=== PATIENT | male | born 1960 | race Caucasian/White ===

== ENCOUNTER 2017-04-16 13:43 | Emergency (ER) | payer OTHER ==
[2017-04-16 14:02] VITALS: RESP 18; TEMP 98.6; O2SAT 99
--- NOTE | 2017-04-16 14:51 | ED PDOC ---
HPI: Hypertension/Hypotension History Per: Patient (56 y M with PMHx of HTN, HLD presents to ED for an episode of hypertension associated with headache. He states that he has not been taking his blood pressure medication for the past 9 months because he didnt feel he needed it anymore. This morning, he experienced a mild headache which he described as bilateral, non radiating and pressure-like. When he checked his blood pressure he found it to be systolic 197. At the moment, he is completely free of any headache. He denies CP, SOB, fever, chills, n/v, hematuria, recent head trauma,weakness in extremities, numbness or tingling. ) History/Exam Limitations: other (Patient is a poor historian- poor recall of medication and stroke Hx) Current Symptoms Are (Timing): Gone Now <Fredi Gilbert - Last Filed: 04/16/17 16:49> <Zeferino Dove - Last Filed: 04/16/17 17:36> Time Seen by Provider: 04/16/17 14:03 Chief Complaint (Nursing): High Blood Pressure Supervising Attending Note - Supervising Attending Note The Documented history was done by the: Physician Mattress Filling Machine Tender The documented physical exam was done by the: Physician Mattress Filling Machine Tender The documented procedures were done by the: Physician Mattress Filling Machine Tender - Attestation: I have personally seen and examined this patient.: Yes I have fully participated in the care of the patient.: Yes I have reviewed all pertinent clinical information, including history, physical exam and plan: Yes - Notes: Notes:: Pt. with mild headache and high bp. Noncompliant with meds. Not worst headache in life. Gones on its own, with no meds. Is pain free currently. <Zeferino Dove - Last Filed: 04/16/17 17:36> Past Medical History Reviewed: Historical Data, Nursing Documentation, Vital Signs Vital Signs: Last Vital Signs Temp 98.6 F 04/16/17 13:58 Pulse 68 04/16/17 13:58 Resp 18 04/16/17 13:58 BP 196/99 H 04/16/17 13:58 Pulse Ox 99 04/16/17 13:58 - Medical History PMH: CVA (2005), HTN, Hypercholesterolemia - Surgical History Surgical History: No Surg Hx - Family History Family History: States: Unknown Family Hx Other Family History: Sister- HTN - Social History Current smoker - smoking cessation education provided: Yes (8 cigarettes daily) Alcohol: Other (6 pack of beer 3-4x a week) <Fredi Gilbert - Last Filed: 04/16/17 16:49> Vital Signs: Last Vital Signs Temp 98.6 F 04/16/17 13:58 Pulse 75 04/16/17 14:51 Resp 18 04/16/17 13:58 BP 199/105 H 04/16/17 16:30 Pulse Ox 99 04/16/17 16:49 <Zeferino Dove - Last Filed: 04/16/17 17:36> - Home Medications Home Medications: Ambulatory Orders Medication Instructions Recorded Furosemide [Lasix] 1 tab PO DAILY 10/12/15 Hydralazine HCl [Hydralazine HCl] 1 tab PO Q8 10/12/15 Lisinopril [Zestril] 1 tab PO DAILY 10/12/15 amLODIPine [Norvasc] 1 tab PO DAILY 10/12/15 Acetaminophen [Acetaminophen Extra 2 tab PO Q4 PRN #24 tablet 12/23/15 Strength] Ibuprofen [Motrin] 1 tab PO Q8 PRN #21 tab 12/23/15 Oseltamivir Phosphate [Tamiflu] 1 tab PO BID #10 cap 12/23/15 - Allergies Allergies/Adverse Reactions: Allergies Allergy/AdvReac Type Severity Reaction Status Date / Time No Known Allergies Allergy Verified 12/23/15 17:02 Review of Systems ROS Statement: Except As Marked, All Systems Reviewed And Found Negative Constitutional: Negative for: Fever, Chills, Weakness Eyes: Negative for: Vision Change Cardiovascular: Negative for: Chest Pain, Palpitations, Edema, Light Headedness Respiratory: Negative for: Cough, Shortness of Breath Gastrointestinal: Negative for: Nausea, Vomiting Genitourinary Male: Negative for: Hematuria Neurological: Negative for: Numbness, Incoordination, Change in Speech, Confusion, Dizziness <Fredi Gilbert - Last Filed: 04/16/17 16:49> Neurological: Positive for: Headache <Zeferino Dove - Last Filed: 04/16/17 17:36> Physical Exam - Reviewed Nursing Documentation Reviewed: Yes Vital Signs Reviewed: Yes - Physical Exam Appears: Positive for: Well, Non-toxic, No Acute Distress Head Exam: Positive for: ATRAUMATIC, NORMAL INSPECTION, NORMOCEPHALIC Skin: Positive for: Normal Color, Warm, DRY Eye Exam: Positive for: EOMI, Normal appearance, PERRL ENT: Positive for: Normal ENT Inspection Neck: Positive for: Normal, Painless ROM Cardiovascular/Chest: Positive for: Regular Rate, Rhythm. Negative for: Chest Non Tender, Edema, Murmur Respiratory: Positive for: Normal Breath Sounds. Negative for: Crackles Pulses-Dorsalis Pedis (L): 2+ Pulses-Dorsalis Pedis (R): 2+ Pulses-Radial (L): 2+ Pulses-Radial (R): 2+ Gastrointestinal/Abdominal: Positive for: Normal Exam, Bowel Sounds, Soft Back: Positive for: Normal Inspection Extremity: Positive for: Normal ROM. Negative for: Pedal Edema Neurologic/Psych: Positive for: Alert, Oriented. 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 Negative for: Aphasia <Zeferino Dove - Last Filed: 04/16/17 17:36> - Laboratory Results Result Diagrams: 04/16/17 15:24 04/16/17 15:24 - ECG O2 Sat by Pulse Oximetry: 99 - Progress ED Course And Treament: 1514hrs - Repeat blood pressure 167/92, patient denies headache Re-evaluation Time: 16:26 (Pt seen lying in bed comfortably; denies headache or any discomfort. ) Condition: Re-examined <Fredi Gilbert - Last Filed: 04/16/17 16:49> - Laboratory Results Result Diagrams: 04/16/17 15:24 04/16/17 15:24 - Progress ED Course And Treament: 1734: BP improved. 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 Pt. EKG similar to old with LVH borderline seen. No infarcting pattern. Pt. aaox3. Pain free. Tolerated PO. Ambulated with no issues. <Zeferino Dove - Last Filed: 04/16/17 17:36> Medical Decision Making Medical Decision Makin yo male with PMHX of HTN, HLD and questionable CVA Hx presents to ED with chief complaint of high blood pressure and headache. Results: Non Contrast Head CT- no signs of an acute hemorrhage; chronic basilar lacunar infarcts EKG- Sinus Bradycardia, LVH, No ST elevations (same findings as HAYES from 10/23 except for LVH) Troponin negative x1 CBC- NML CMP NML <Fredi Gilbert - Last Filed: 04/16/17 16:49> Disposition - Patient ED Disposition Is Patient to be Admitted: No Counseled Patient/Family Regarding: Studies Performed, Diagnosis, Need For Followup, Smoking Cessation - Disposition Disposition: Routine/Home Disposition Time: 16:36 <Fredi Gilbert - Last Filed: 04/16/17 16:49> <Zeferino Dove - Last Filed: 04/16/17 17:36> - Clinical Impression Clinical Impression: Hypertension, Hypokalemia - Disposition Referrals: [facility] [Outside] - 04/17/17 Condition: GOOD Additional Instructions: Return if not better in 3 days. Instructions: Hypokalemia (ED), DASH Eating Plan (ED), Hypertension (ED), Hypertension (GEN), Hyperlipidemia (GEN) Forms: [employer] (British)
[2017-04-16 15:31] LABS: BASO # 0.1 K/uL (0.0-0.2); BASO % 1.3 % (0.0-2.0); EOS # 0.1 K/uL (0.0-0.7); EOS % 1.8 % (0.0-4.0); HEMATOCRIT 42.5 % (35.0-51.0); LYMPH # 1.9 K/uL (1.0-4.3); MEAN CELL VOLUME 85.6 fl (80.0-94.0); MEAN CORPUSCULAR HEMOGLOBIN 27.9 pg (27.0-31.0); MEAN CORPUSCULAR HGB CONC 32.6 g/dL (33.0-37.0); MEAN PLATELET VOLUME 8.8 fl (7.2-11.7); MONO # 0.6 K/uL (0.0-0.8); MONO % 8.1 % (0.0-10.0); NEUT # 4.4 K/uL (1.8-7.0); NEUT % 61.8 % (50.0-75.0); RED CELL DISTRIBUTION WIDTH 13.9 % (11.5-14.5); WHITE BLOOD COUNT 7.1 K/uL (4.8-10.8)
[2017-04-16 15:46] LABS: ALB/GLOB RATIO 1.4 (1.0-2.1); ALKALINE PHOSPHATASE 59 U/L (38-126); ALT/SGPT 32 U/L (21-72); AST/SGOT 23 U/L (17-59); BILIRUBIN,TOTAL 0.5 mg/dl (0.2-1.3); BLOOD UREA NITROGEN 19 mg/dl (9-20); CALCIUM 9.5 mg/dL (8.4-10.2); CARBON DIOXIDE 23 mmol/L (22-30); CHLORIDE 108 mmol/L (98-107); GFR AFRICAN-AMERICAN > 60; GLUCOSE,RANDOM 114 mg/dL (75-110); POTASSIUM 3.4 MMOL/L (3.6-5.0); SODIUM 140 mmol/l (132-148); TOTAL PROTEIN 6.7 G/DL (6.3-8.2)
--- NOTE | 2017-04-16 15:54 | CT ---
PROCEDURE: CT HEAD WITHOUT CONTRAST. HISTORY: headache COMPARISON: Outside head CT dated 05/09/2011 from [facility]. TECHNIQUE: Axial computed tomography images were obtained through the head/brain without intravenous contrast. Radiation dose: Total exam DLP = 846 mGy-cm. This CT exam was performed using one or more of the following dose reduction techniques: Automated exposure control, adjustment of the mA and/or kV according to patient size, and/or use of iterative reconstruction technique. FINDINGS: HEMORRHAGE: No intracranial hemorrhage. BRAIN: Bilateral basal ganglia chronic lacunar infarcts are again appreciated greater at the left than right sides. Periventricular white matter lucency is appreciate which may reflect early chronic microangiopathy once again. No suspicious interval density changes are identified within the cortex above and below the tentorium with the brainstem normal appearing once again. No suspicious extra-axial findings. VENTRICLES: Unremarkable. No hydrocephalus. CALVARIUM: Unremarkable. PARANASAL SINUSES: Limited ethmoid sinus disease is appreciate the lung mid to posterior left ethmoid air cells. MASTOID AIR CELLS: Unremarkable as visualized. No inflammatory changes. OTHER FINDINGS: None. IMPRESSION: 1. No definite acute intracranial findings. 2. Chronic lacune or infarcts are seen the bilateral basal ganglia once again without significant change overall above and below the tentorium. This includes limited periventricular white matter lucency which may reflect early chronic microangiopathy.
[2017-04-16] MEDS ORDERED: Potassium Chloride 20 mEq ER Tab PO ONE ×2 (16:18→16:28)
[2017-04-16 17:41] VITALS: BP 168/98; PULSE 78
--- NOTE | 2017-04-17 11:23 | CARD ---
APPROVED REPORT EKG Measurement Heart [id number] AK [id number] <Conclusion> Sinus bradycardia Possible Left atrial enlargement Left ventricular hypertrophy Cannot rule out Septal infarct, age undetermined Abnormal ECG
== END 2017-04-16 17:42 | disposition home or self-care (01) ==
LOC: H.ER 13:43
DX: I10 Essential (primary) hypertension (principal); E87.6 Hypokalemia; E78.5 Hyperlipidemia, unspecified; Z86.73 Personal history of transient ischemic attack (TIA), and cerebral infarction without residual deficits

== ENCOUNTER 2018-01-15 09:45 | Inpatient (IN) | payer OTHER ==
[2018-01-15 10:06] VITALS: BMI 33.5
[2018-01-15] MEDS ORDERED: Labetalol 5 mg/ml Inj 20ML IVP STA (10:59)
--- NOTE | 2018-01-15 11:05 | ED PDOC ---
HPI: Hypertension/Hypotension Time Seen by Provider: 01/15/18 11:02 Chief Complaint (Nursing): High Blood Pressure Chief Complaint (Provider): elevated BP; left leg weakness resolved History Per: Patient (57 y/o male h/o HTN noncompliant on medications, h/o CVA 2004 mild here for evaluation of left leg limp noted this morning and resolved by arrival to ED. Patient denies any h/o injury or pain. Notes additional left eye redness that occurred after coughing post choking earlier this week. Denies any chest pain/sob.) NIHSS Stroke Scale - Date/Time Evaluation Performed Date Performed: 01/15/18 Time Performed: 10:55 When Was NIHSS Performed: Baseline - How Severe is the Stroke Level of Consciousness: 0=Alert LOC to Questions: 0=Both comments correct LOC to commands: 0=Obeys both correctly Best Gaze: 0=Normal Visual: 0=No visual loss Facial: 0=Normal Motor Arm - Left: 0=No drift Motor Arm - Right: 0=No drift Motor Leg - Left: 0=No drift Motor Leg - Right: 0=No drift Limb Ataxia: 0=Absent Sensory: 0=Normal Best Language: 0=No aphasia Dysarthia: 0=Normal articulation Extinction & Inattention (Neglect): 0=Normal, no object Score: 0 rTPA Inclusion/Exclusion - Refusal of Treatment Patient Refused Treatment: No - Inclusion Criteria for Altepase Patient is 18 years or Older: Yes The Clinical Diagnosis of Ischemic Stroke That is Causing a Potentially Disabling Neurological Deficit: No Time of Onset is Well Established to be Less Than 270 Minute Before Treatment Would Begin: No Risk/Benefit Discussed With Patient/Family Member Present: No - Exclusion Criteria for Altepase Uncontrolled Hypertension at Time of Treatment (Systolic BP above 185 or Diastolic BP above 110 mmHg): Yes Past Medical History Reviewed: Historical Data, Nursing Documentation, Vital Signs Vital Signs: Last Vital Signs Temp 97.7 F 01/15/18 10:06 Pulse 61 01/15/18 10:37 Resp 19 01/15/18 10:37 BP 218/137 H 01/15/18 10:37 Pulse Ox 98 01/15/18 10:37 - Medical History PMH: CVA (2004), HTN, Hypercholesterolemia - Family History Family History: States: Unknown Family Hx - Home Medications Home Medications: Ambulatory Orders Medication Instructions Recorded Cyclobenzaprine [Cyclobenzaprine 10 mg PO TID #10 tab 06/05/17 HCl] amLODIPine [Norvasc] 10 mg PO DAILY #14 tab 06/05/17 - Allergies Allergies/Adverse Reactions: Allergies Allergy/AdvReac Type Severity Reaction Status Date / Time No Known Allergies Allergy Verified 12/23/15 17:02 Review of Systems ROS Statement: Except As Marked, All Systems Reviewed And Found Negative Physical Exam - Reviewed Nursing Documentation Reviewed: Yes Vital Signs Reviewed: Yes - Physical Exam Appears: Positive for: Well, Non-toxic, No Acute Distress Head Exam: Positive for: ATRAUMATIC, NORMAL INSPECTION, NORMOCEPHALIC Skin: Positive for: Normal Color, Warm, DRY Eye Exam: Positive for: Normal appearance, EOMI, PERRL, Other (left subconjunctival hemorrhage noted) ENT: Positive for: Normal ENT Inspection Neck: Positive for: Normal, Painless ROM Cardiovascular/Chest: Positive for: Regular Rate, Rhythm Respiratory: Positive for: CNT, Normal Breath Sounds Gastrointestinal/Abdominal: Positive for: Normal Exam, Soft Back: Positive for: Normal Inspection Extremity: Positive for: Normal ROM Neurologic/Psych: Positive for: Alert, 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 Negative for: Motor/Sensory Deficits (5/5 upper and lower extremity strength noted.), Cerebellar Tests, Aphasia, Facial Droop - Laboratory Results Result Diagrams: 01/15/18 12:23 01/15/18 12:23 - ECG ECG Rhythm: Positive for: Sinus Bradycardia (50 bpm no ectopy no acute changes.) O2 Sat by Pulse Oximetry: 98 - Progress ED Course And Treament: d/w Dr. Whittaker 11:13am MRI of brain recommended. head ct: IMPRESSION: No acute intracranial hemorrhage. Moderate chronic white matter ischemic changes with multiple more discrete bilateral basal nuclei chronic appearing lacunar type infarcts. Note that the possibility of a small hyperacute infarct cannot be excluded on this study. Moderate generalized volume loss. labetolol 20 mg iv x 1 dose Repeat BP 198/122 hydralazine 10 mg iv x 1 dose REPEAT BP 194/114 D/W DR. CORONEL D/W FAMILY MED RESIDENT MRI OF BRAIN: IMPRESSION: There is a small acute/subacute right post rule out basal ganglia infarct. Chronic white matter and basal nuclei ischemic changes as above. Moderate generalized volume loss. Findings discussed with bebo Seay at 2:30 p.m. with written down and read back verification. D/W DR. WHITTAKER WILL OBTAIN ECHO/CTA AND ORDER ASA. d/w Dr. Okeefe opthalmology as requested by Dr. Whittaker hydralazine 10 mg 2nd dose repeat BP 175/100. Dr. Coronel aware. hydralazine 25 mg po q8 ordered Disposition - Clinical Impression Clinical Impression: Hypertensive urgency, TIA (transient ischemic attack) - Patient ED Disposition Is Patient to be Admitted: Yes - Disposition Disposition Time: 13:08 Condition: FAIR - Pt Status Changed To: Hospital Disposition Of: Inpatient - Admit Certification Admit to Inpatient:: After my assessment, the patient will require hospitalization for at least two midnights. This is because of the severity of symptoms shown, intensity of services needed, and/or the medical risk in this patient being treated as an outpatient.
--- NOTE | 2018-01-15 11:37 | CT ---
PROCEDURE: CT HEAD WITHOUT CONTRAST. HISTORY: Weakness in left leg resolved COMPARISON: None available. TECHNIQUE: Axial computed tomography images were obtained through the head/brain without intravenous contrast. Radiation dose: Total exam DLP = 889.73 mGy-cm. This CT exam was performed using one or more of the following dose reduction techniques: Automated exposure control, adjustment of the mA and/or kV according to patient size, and/or use of iterative reconstruction technique. FINDINGS: HEMORRHAGE: No intracranial hemorrhage. BRAIN: Moderate diffuse/confluent chronic periventricular white matter ischemic changes seen extending peripherally into the deep and subcortical white matter both cerebral hemispheres. . In addition, there are scattered chronic appearing bilateral basal nuclei lacunar type infarcts. Note that the possibility of a small hyperacute infarct cannot be excluded on this study. Moderate generalized volume loss. VENTRICLES: Unremarkable. No hydrocephalus. CALVARIUM: Unremarkable. PARANASAL SINUSES: Mild mucoperiosteal inflammatory changes are present within within the ethmoid air complex. MASTOID AIR CELLS: Unremarkable as visualized. No inflammatory changes. OTHER FINDINGS: None. IMPRESSION: No acute intracranial hemorrhage. Moderate chronic white matter ischemic changes with multiple more discrete bilateral basal nuclei chronic appearing lacunar type infarcts. Note that the possibility of a small hyperacute infarct cannot be excluded on this study. Moderate generalized volume loss.
[2018-01-15 12:39] LABS: BASO # 0.1 K/uL (0.0-0.2); BASO % 0.8 % (0.0-2.0); EOS # 0.1 K/uL (0.0-0.7); EOS % 1.9 % (0.0-4.0); HEMOGLOBIN 14.2 g/dL (12.0-18.0); LYMPH # 1.8 K/uL (1.0-4.3); LYMPH % 25.3 % (20.0-40.0); MEAN CELL VOLUME 85.8 fl (80.0-94.0); MEAN CORPUSCULAR HEMOGLOBIN 28.1 pg (27.0-31.0); MEAN CORPUSCULAR HGB CONC 32.7 g/dL (33.0-37.0); MEAN PLATELET VOLUME 8.9 fl (7.2-11.7); MONO # 0.5 K/uL (0.0-0.8); NEUT # 4.7 K/uL (1.8-7.0); RBC 5.07 Mil/uL (4.40-5.90); RED CELL DISTRIBUTION WIDTH 15.1 % (11.5-14.5); WHITE BLOOD COUNT 7.2 K/uL (4.8-10.8)
[2018-01-15 12:44] LABS: BLOOD UREA NITROGEN 20 mg/dl (9-20); GFR AFRICAN-AMERICAN > 60; GFR NON-AFRICAN AMERICAN > 60
[2018-01-15 12:56] LABS: PARTIAL THROMBOPLASTIN TIME 40.9 Seconds (25.6-37.1); PROTHROMBIN TIME 10.6 Seconds (9.8-13.1)
--- NOTE | 2018-01-15 14:39 | MRI ---
PROCEDURE: MRI BRAIN WITHOUT CONTRAST HISTORY: Left leg weakness resolved; evaluate for stroke COMPARISON: None. TECHNIQUE: Multiplanar, multisequence MR images of the brain were obtained without intravenous contrast enhancement. FINDINGS: HEMORRHAGE: No acute parenchymal, subarachnoid or extra-axial hemorrhage. DWI: There is a very small faint area of restricted diffusion in the right posterolateral basal ganglia consistent with a small acute large subacute infarct. BRAIN PARENCHYMA: Changes the moderate diffuse and confluent chronic periventricular white matter prolonged T2 signal changes extending peripherally into deep and subcortical regions of both cerebral hemispheres seen to better advantage on this exam as compared to high-resolution CT scan. . Findings most likely represent chronic sequela of small vessel disease. There are multiple more discrete deep and subcortical white matter as well as bilateral basal nuclei chronic lacunar-type infarcts. . No obvious parenchymal nor extra-axial mass or collection seen on this noncontrast study. Mild moderate generalized volume loss. VENTRICLES: No obstructive hydrocephalus. CRANIUM: Unremarkable. ORBITS: Orbits and contents unremarkable. PARANASAL SINUSES/MASTOIDS: Mild mucosal thickening seen within a multiple ethmoid air cells. Minimal mucosal thickening both maxillary antra VASCULAR SYSTEM: The visualized major vascular flow voids at skull base patent. OTHER FINDINGS: None. IMPRESSION: There is a small acute/subacute right post rule out basal ganglia infarct. Chronic white matter and basal nuclei ischemic changes as above. Moderate generalized volume loss. Findings discussed with bebo Seay at 2:30 p.m. with written down and read back verification.
[2018-01-15] MEDS ORDERED: Iodixanol 320 MG/ML 100 ML BOTTLE IV ONE (15:14)
[2018-01-15] MEDS ORDERED: Sodium Chloride 0.9% 50 ML IV ONE (15:15)
--- NOTE | 2018-01-15 16:02 | CARD ---
APPROVED REPORT EKG Measurement Heart [id number] HI [id number] [id number] <Conclusion> Sinus bradycardia Possible Left atrial enlargement Left ventricular hypertrophy Abnormal ECG
--- NOTE | 2018-01-15 17:01 | CARD ---
APPROVED REPORT EXAM: Two-dimensional and M-mode echocardiogram with Doppler and color Doppler. Other Information Quality : GoodRhythm : NSR INDICATION CVA/TIA 2D DIMENSIONS IVSd1.70 (0.7-1.1cm)LVDd4.52 (3.9-5.9cm) LVOT Diameter2.58 (1.8-2.4cm)PWd1.74 (0.7-1.1cm) IVSs1.82 (0.8-1.2cm)LVDs3.10 (2.5-4.0cm) FS (%) 31.5 %PWs1.81 (0.8-1.2cm) LVEF (%)55.0 (>50%) M-Mode DIMENSIONS Left Atrium (MM)4.50 (2.5-4.0cm)IVSd1.47 (0.7-1.1cm) Aortic Root2.94 (2.2-3.7cm)LVDd5.38 (4.0-5.6cm) Aortic Cusp Exc.2.09 (1.5-2.0cm)PWd1.62 (0.7-1.1cm) IVSs2.32 cmFS (%) 54 % LVDs2.50 (2.0-3.8cm)PWs2.53 cm Mitral Valve MV E Dlfhrgpi19.3cm/sMV DECEL [id number] A Lnhghtcy07.8cm/s MV DDF73lkL/A ratio1.0MVA (PHT)2.67cm2 TDI Lateral E' Peak V11.57cm/sMedial E' Peak V6.44cm/sE/Lateral E'6.2 E/Medial E'11.2 Pulmonary Valve PV Peak Ynnrulbm257.8cm/s LEFT VENTRICLE The left ventricle is normal size. There is mild to moderate concentric left ventricular hypertrophy. The left ventricular function is normal. The left ventricular ejection fraction is within the normal range. There is normal LV segmental wall motion. Transmitral Doppler flow pattern is Grade I-abnormal relaxation pattern. RIGHT VENTRICLE The right ventricle is normal size. There is normal right ventricular wall thickness. The right ventricular systolic function is normal. ATRIA The left atrium is mildly dilated. The right atrium size is normal. AORTIC VALVE The aortic valve is mildly thickened. No aortic regurgitation is present. There is no aortic valvular stenosis. MITRAL VALVE The mitral valve is normal in structure. There is no mitral valve stenosis. Mitral regurgitation is mild. TRICUSPID VALVE The tricuspid valve is normal in structure. There is trace tricuspid regurgitation. PULMONIC VALVE The pulmonary valve is normal in structure. There is no pulmonic valvular regurgitation. GREAT VESSELS The aortic root is normal in size. The IVC is normal in size and collapses >50% with inspiration. PERICARDIAL EFFUSION The pericardium appears normal. <Conclusion> The left ventricle is normal size. There is mild to moderate concentric left ventricular hypertrophy. The left ventricular function is normal. The left ventricular ejection fraction is within the normal range. There is normal LV segmental wall motion. Transmitral Doppler flow pattern is Grade I-abnormal relaxation pattern. Mitral regurgitation is mild. A samll PFO is likely present
--- NOTE | 2018-01-15 17:33 | CT ---
PROCEDURE: CTA neck brain dated 01/15/2018 HISTORY: Stroke COMPARISON: Correlation made with prior MRI and CT scan brain obtained earlier same day TECHNIQUE: Contiguous helical/transaxial images of the neck were obtained from the level of the skull-base to the superior mediastinum in the arteriographic phase of enhancement. Coronal and sagittal reformats or also generated. IV contrast dose: 90 cc Visipaque 320 Radiation Dose - DLP: 785.04 mGy-cm This CT exam was performed using one or more of the following dose reduction techniques: Automated exposure control, adjustment of the mA and/or kV according to patient size, and/or use of iterative reconstruction technique. . FINDINGS: Minor up partially calcified atherosclerotic plaque seen along the lateral and inferolateral margin of the transverse portion of the aortic arch. . The right brachiocephalic and left common carotid artery arise from a common trunk. The common carotid arteries are widely patent with no evidence of significant stenosis or dissection. Some very minor soft and partially carotid bifurcation extending slightly into the proximal margin of the left internal carotid artery with tiny calcification along the posterior margin of the proximal left internal carotid artery. Minor soft plaque seen the right carotid bifurcation and proximal margin of the right internal carotid artery. No significant stenosis. The distal internal carotid arteries including the petrous cavernous and supraclinoid segments widely patent. The vertebral arteries patent throughout, right-side which is only slightly larger in caliber/more dominant the than the left side. . Basilar artery is patent. The visualized major branches of the [place] are also patent. No evidence of large aneurysm nor vascular malformation. The distal branches of the anterior middle and posterior cerebral arteries are patent and appear relatively symmetric. IMPRESSION: No evidence of occlusion, significant stenosis or dissection of the extracranial or intracranial anterior/posterior circulation. Note is made of minor soft plaque changes both carotid bifurcations with a tiny rounded calcified plaque component left proximal internal carotid artery. . No evidence of large aneurysm.
--- NOTE | 2018-01-15 22:13 | CP.PCM.CON ---
History of Present Illness - History of Present Illness History of Present Illness: 57 yr old male who suddenly started to have left leg numbness and weakness that resolved by the time of my exam, starting about 4 hours before presentation. Patient has a history of a lacunar stroke in 2004v and is often noncompliant with his medications. He denies dysarthria, headache, nausea, vomiting, aphasia, visual field issues or any loss of consciousness. MRI brain shows that he has an acute right basal ganglia stroke that is acute in nature. He is not a TPA candidate as his symptoms are resolved. NIH stroke scale: 0. PMH: CVA (2004), HTN, Hypercholesterolemia - Family History Family History: States: Unknown Family Hx - Home Medications Home Medications: Ambulatory Orders Medication Instructions Recorded Cyclobenzaprine [Cyclobenzaprine 10 mg PO TID #10 tab 06/05/17 HCl] amLODIPine [Norvasc] 10 mg PO DAILY #14 tab 06/05/17 on exam; AAOX3. PERRL. Cn 2-12 normal. speech fluent. naming and repetition intact. Motor: tone normal, strength: 5-/5 left lower limb, rest of neuro exam is normal. There is no extinction, no other deficits +2 dtr ul and ll bl. toes downgoing. NO clonus. Gait normal can walk tandem. Past Patient History - Infectious Disease Hx of Infectious Diseases: None - Past Social History Smoking Status: Light Smoker < 10 Cigarettes Daily - CARDIAC Hx Hypercholesterolemia: Yes Hx Hypertension: Yes - NEUROLOGICAL Hx Neurological Disorder: Yes - PSYCHIATRIC Hx Substance Use: No - SURGICAL HISTORY Hx Surgeries: No - ANESTHESIA Hx Anesthesia: No Meds Allergies/Adverse Reactions: Allergies Allergy/AdvReac Type Severity Reaction Status Date / Time No Known Allergies Allergy Verified 12/23/15 17:02 - Medications Medications: Current Medications Amlodipine Besylate (Norvasc) 10 mg PO DAILY [facility] Hydralazine HCl (Apresoline) 25 mg PO TID [facility] Last Admin: 01/15/18 17:23 Dose: 25 mg Results - Vital Signs Recent Vital Signs: Last Vital Signs Temp 98 F 01/15/18 20:40 Pulse 62 01/15/18 20:40 Resp 16 01/15/18 20:40 BP 171/86 H 01/15/18 20:40 Pulse Ox 98 01/15/18 20:40 - Labs Result Diagrams: 01/15/18 12:23 01/15/18 12:23 Labs: Laboratory Results - last 24 hr 01/15/18 01/15/18 01/15/18 12:23 12:23 12:23 WBC 7.2 RBC 5.07 Hgb 14.2 Hct 43.5 MCV 85.8 MCH 28.1 MCHC 32.7 L RDW 15.1 H Plt Count 260 MPV 8.9 Neut % (Auto) 65.0 Lymph % (Auto) 25.3 [place] % (Auto) 7.0 Eos % (Auto) 1.9 Baso % (Auto) 0.8 Neut # (Auto) 4.7 Lymph # (Auto) 1.8 [place] # (Auto) 0.5 Eos # (Auto) 0.1 Baso # (Auto) 0.1 PT 10.6 INR 1.0 APTT 40.9 H Sodium 138 Potassium 3.6 Chloride 104 Carbon Dioxide 25 Anion Gap 13 BUN 20 Creatinine 1.2 Est GFR ( Amer) > 60 Est GFR (Non-Af Amer) > 60 Random Glucose 93 Calcium 9.0 Troponin I 0.0280 Assessment & Plan - Assessment and Plan (Free Text) Assessment: CTA: minimal plaque in carotids bilaterally. a/p: 57 yr old mal with uncontolled hypertension who has a new right basal ganglia stroke that is causing these symptoms. I believe this is a lacunar stroke and secondary to hypertension. PLan: 1. ECHo 2. aspirin 325 mg po daily 3. lipid profile. 4. control bp within nomral parameters. 5. pt/st/ot THank you Dr. garcia
--- NOTE | 2018-01-16 02:01 | CP.PCM.PCO ---
Physician Communication Note - Physician Communication Note Physician Communication Note: nurse paged, patients BP is 193/90 with HR 49 bpm , asymptomatic Assessment/Plan - Assessment and Plan (Free Text) Assessment: 57 yr old M admitted for acute CVA, per neurology: MRI brain showed acute right basal ganglia stroke. Patient was not a candidate for TPA as symptoms resolved. Patient is currently asymptomatic (denies chest pain, headache, weakness, dizziness). Echocardiogram showed normal LV size and function with LVEF of 55%. Multiple hypertensive medications were administered at 23:00 including ( Hydralazine 50mg PO, Amlodipine 5mg PO) as well as aspirin 81mg PO. Plan: -Will continue to monitor patient and reassess BP in 2hrs as multiple medications were administered at 23:00 and patient is currently asymptomatic. Will consider additional antihypertensive medication pending repeat BP. - Date & Time Date: 01/16/18 Time: 02:09
[2018-01-16 07:35] LABS: BASO # 0.1 K/uL (0.0-0.2); BASO % 0.8 % (0.0-2.0); EOS # 0.2 K/uL (0.0-0.7); EOS % 3.1 % (0.0-4.0); HEMOGLOBIN 13.9 g/dL (12.0-18.0); LYMPH % 27.7 % (20.0-40.0); MEAN CORPUSCULAR HEMOGLOBIN 28.3 pg (27.0-31.0); MEAN CORPUSCULAR HGB CONC 32.9 g/dL (33.0-37.0); MEAN PLATELET VOLUME 8.9 fl (7.2-11.7); MONO # 0.7 K/uL (0.0-0.8); MONO % 9.4 % (0.0-10.0); NEUT # 4.2 K/uL (1.8-7.0); RBC 4.91 Mil/uL (4.40-5.90); WHITE BLOOD COUNT 7.1 K/uL (4.8-10.8)
[2018-01-16 08:01] LABS: ALB/GLOB RATIO 1.2 (1.0-2.1); ALBUMIN 3.4 g/dL (3.5-5.0); ALT/SGPT 27 U/L (21-72); AST/SGOT 27 U/L (17-59); BLOOD UREA NITROGEN 17 mg/dl (9-20); CALCIUM 8.8 mg/dL (8.4-10.2); GFR AFRICAN-AMERICAN > 60; GFR NON-AFRICAN AMERICAN > 60
[2018-01-16] MEDS ORDERED: Pneumococcal 23-Valent Vaccine IM ONE (08:09)
[2018-01-16] MEDS ORDERED: Potassium Chloride 20 mEq ER Tab PO STA (08:20)
[2018-01-16 12:25] VITALS: RESP 18
--- NOTE | 2018-01-16 23:12 | CP.PCM.HP ---
History of Present Illness - History of Present Illness History of Present Illness: This is a 57 y/o male admitted for a possible TIA. He presented with left leg limping associated with accelerated HTN. Past Patient History - Infectious Disease Hx of Infectious Diseases: None - Past Medical History & Family History Past Medical History?: Yes - Past Social History Smoking Status: Light Smoker < 10 Cigarettes Daily - CARDIAC Hx Hypercholesterolemia: Yes Hx Hypertension: Yes - PULMONARY Hx Respiratory Disorders: No - NEUROLOGICAL Hx Neurological Disorder: Yes - HEENT Hx HEENT Problems: No - RENAL Hx Chronic Kidney Disease: No - HEMATOLOGICAL/ONCOLOGICAL Hx Blood Disorders: No - INTEGUMENTARY Hx Dermatological Problems: No - MUSCULOSKELETAL/RHEUMATOLOGICAL Hx Musculoskeletal Disorders: No Hx Falls: No - GASTROINTESTINAL Hx Gastrointestinal Disorders: No - GENITOURINARY/GYNECOLOGICAL Hx Genitourinary Disorders: No - PSYCHIATRIC Hx Substance Use: No - SURGICAL HISTORY Hx Surgeries: No - ANESTHESIA Hx Anesthesia: No Meds Allergies/Adverse Reactions: Allergies Allergy/AdvReac Type Severity Reaction Status Date / Time No Known Allergies Allergy Verified 12/23/15 17:02 Results - Vital Signs Recent Vital Signs: Last Vital Signs Temp 97.0 F L 01/16/18 20:35 Pulse 50 L 01/16/18 20:35 Resp 18 01/16/18 20:35 BP 167/97 H 01/16/18 20:35 Pulse Ox 98 01/16/18 20:35 - Labs Result Diagrams: 01/16/18 06:00 01/16/18 06:00 Labs: Laboratory Results - last 24 hr 01/16/18 01/16/18 06:00 06:00 WBC 7.1 RBC 4.91 Hgb 13.9 Hct 42.2 MCV 86.0 MCH 28.3 MCHC 32.9 L RDW 15.0 H Plt Count 242 MPV 8.9 Neut % (Auto) 59.0 Lymph % (Auto) 27.7 [place] % (Auto) 9.4 Eos % (Auto) 3.1 Baso % (Auto) 0.8 Neut # (Auto) 4.2 Lymph # (Auto) 2.0 [place] # (Auto) 0.7 Eos # (Auto) 0.2 Baso # (Auto) 0.1 Sodium 139 Potassium 3.3 L Chloride 105 Carbon Dioxide 29 Anion Gap 8 L BUN 17 Creatinine 1.2 Est GFR ( Amer) > 60 Est GFR (Non-Af Amer) > 60 Random Glucose 97 Calcium 8.8 Total Bilirubin 1.1 AST 27 ALT 27 Alkaline Phosphatase 57 Total Protein 6.4 Albumin 3.4 L Globulin 3.0 Albumin/Globulin Ratio 1.2
[2018-01-17 08:27] VITALS: O2SAT 98
--- NOTE | 2018-01-17 09:13 | CP.PCM.PN ---
Subjective - Date & Time of Evaluation Date of Evaluation: 01/17/18 Time of Evaluation: 09:09 - Subjective Subjective: Mr. Waters was seen and examined at the bedside. He is alert, oriented in all spheres. He has left scleara blood tinge, but denies any blurred vision and diplopia. He denies any headache, dizziness, but claims of mild numbness in his left toes. He is able to ambulate in a steady gait within his room. Echocardiogram showed LV size is nomal, there is a mild to moderate concentric LV hypertrophy (uncontrolled HTN), LV function is normal, EF is normal. LV segmental wall motion is normal, Grade-1 abnormal relaxation pattern, mitral regurgitation is mild, possible small PFO. There was no untoward events overnight. Objective - Vital Signs/Intake and Output Vital Signs (last 24 hours): Temp Pulse Resp BP Pulse Ox 98.1 F 49 L 18 207/106 H 98 01/17/18 08:26 01/17/18 08:26 01/17/18 08:26 01/17/18 08:26 01/17/18 08:26 - Medications Medications: Current Medications Amlodipine Besylate (Norvasc) 10 mg PO DAILY [facility] Clonidine HCl (Catapres) 0.3 mg PO Q8 [facility] Hydralazine HCl (Apresoline) 100 mg PO TID [facility] Valsartan (Diovan) 320 mg PO DAILY [facility] Last Admin: 01/17/18 08:19 Dose: 320 mg - Labs Labs: 01/16/18 06:00 01/16/18 06:00 PT 10.6 Seconds (9.8-13.1) 01/15/18 12:23 INR 1.0 (0.9-1.2) 01/15/18 12:23 APTT 40.9 Seconds (25.6-37.1) H 01/15/18 12:23 - Constitutional Appears: No Acute Distress - Head Exam Head Exam: NORMAL INSPECTION - Eye Exam Eye Exam: PERRL Additional comments: blood tinge sclerae - Neurological Exam Neurological Exam: Alert, Awake, CN II-XII Intact, Oriented x3 Neuro motor strength exam: Left Upper Extremity: 5, Right Upper Extremity: 5, Left Lower Extremity: 5, Right Lower Extremity: 5 Additional comments: alert, oriented x3, follows simple commands with left feet toes numbness Assessment and Plan (1) TIA (transient ischemic attack) Assessment & Plan: Case discussed with Dr. White, continue all current medical, physical, and occupational therapies. Recommend to hold off anticoagulant due to his left eye blood tinge, repeat CT scan of the head without contrast today, blood pressure control, normothermic, keep head of bed elevated, and treat any electrolyte abnormalities. Status: Acute
--- NOTE | 2018-01-17 11:14 | CP.PCM.DIS ---
Provider - Provider Date of Admission: 01/16/18 13:08 Attending physician: Mayank Holly MD Hospital Course - Lab Results Lab Results: Most Recent Lab Values WBC 7.1 K/uL (4.8-10.8) 01/16/18 06:00 RBC 4.91 Mil/uL (4.40-5.90) 01/16/18 06:00 Hgb 13.9 g/dL (12.0-18.0) 01/16/18 06:00 Hct 42.2 % (35.0-51.0) 01/16/18 06:00 MCV 86.0 fl (80.0-94.0) 01/16/18 06:00 MCH 28.3 pg (27.0-31.0) 01/16/18 06:00 MCHC 32.9 g/dL (33.0-37.0) L 01/16/18 06:00 RDW 15.0 % (11.5-14.5) H 01/16/18 06:00 Plt Count 242 K/uL (130-400) 01/16/18 06:00 MPV 8.9 fl (7.2-11.7) 01/16/18 06:00 Neut % (Auto) 59.0 % (50.0-75.0) 01/16/18 06:00 Lymph % (Auto) 27.7 % (20.0-40.0) 01/16/18 06:00 [place] % (Auto) 9.4 % (0.0-10.0) 01/16/18 06:00 Eos % (Auto) 3.1 % (0.0-4.0) 01/16/18 06:00 Baso % (Auto) 0.8 % (0.0-2.0) 01/16/18 06:00 Neut # (Auto) 4.2 K/uL (1.8-7.0) 01/16/18 06:00 Lymph # (Auto) 2.0 K/uL (1.0-4.3) 01/16/18 06:00 [place] # (Auto) 0.7 K/uL (0.0-0.8) 01/16/18 06:00 Eos # (Auto) 0.2 K/uL (0.0-0.7) 01/16/18 06:00 Baso # (Auto) 0.1 K/uL (0.0-0.2) 01/16/18 06:00 PT 10.6 Seconds (9.8-13.1) 01/15/18 12:23 INR 1.0 (0.9-1.2) 01/15/18 12:23 APTT 40.9 Seconds (25.6-37.1) H 01/15/18 12:23 Sodium 139 mmol/l (132-148) 01/16/18 06:00 Potassium 3.3 MMOL/L (3.6-5.0) L 01/16/18 06:00 Chloride 105 mmol/L (98-107) 01/16/18 06:00 Carbon Dioxide 29 mmol/L (22-30) 01/16/18 06:00 Anion Gap 8 (10-20) L 01/16/18 06:00 BUN 17 mg/dl (9-20) 01/16/18 06:00 Creatinine 1.2 mg/dl (0.8-1.5) 01/16/18 06:00 Est GFR ( Amer) > 60 01/16/18 06:00 Est GFR (Non-Af Amer) > 60 01/16/18 06:00 Random Glucose 97 mg/dL (75-110) 01/16/18 06:00 Calcium 8.8 mg/dL (8.4-10.2) 01/16/18 06:00 Total Bilirubin 1.1 mg/dl (0.2-1.3) 01/16/18 06:00 AST 27 U/L (17-59) 01/16/18 06:00 ALT 27 U/L (21-72) 01/16/18 06:00 Alkaline Phosphatase 57 U/L (38-126) 01/16/18 06:00 Troponin I 0.0280 ng/mL (0.00-0.120) 01/15/18 12:23 Total Protein 6.4 G/DL (6.3-8.2) 01/16/18 06:00 Albumin 3.4 g/dL (3.5-5.0) L 01/16/18 06:00 Globulin 3.0 gm/dL (2.2-3.9) 01/16/18 06:00 Albumin/Globulin Ratio 1.2 (1.0-2.1) 01/16/18 06:00 - Hospital Course Hospital Course: This is a 57 y/o male admitted for tia and accelerated HTN Discharge Exam - Head Exam Head Exam: NORMAL INSPECTION Discharge Plan - Follow Up Plan Condition: FAIR Disposition: HOME/ ROUTINE
--- NOTE | 2018-01-17 11:51 | CP.PCM.CON ---
History of Present Illness - History of Present Illness History of Present Illness: I was asked to see pateint by Dr del rio. Patient is a 57 year old male with previous CVA who presents with facial numbness and weakness. Blood pressure was markedly elevated. The patient denies chest pain or dyspnea. He had previous palpitiatons. Review of Systems - EENT Eyes: absent: As Per HPI, Blind Spots, Blurred Vision, Change in Vision, Decreased Night Vision, Diplopia, Discharge, Dry Eye, Exophthalmos, Floaters, Irritation, Itchy Eyes, Loss of Peripheral Vision, Pain, Photophobia, Requires Corrective Lenses, Sees Flashes, Spots in Vision, Tunnel Vision, Other Visual Disturbances, Loss of Vision, Other Ears: absent: As Per HPI, Decreased Hearing, Ear Discharge, Ear Pain, Tinnitus, Abnormal Hearing, Disequilibrium, Dizziness, Other Nose/Mouth/Throat: absent: As Per HPI, Epistaxis, Nasal Congestion, Nasal Discharge, Nasal Obstruction, Nasal Trauma, Nose Pain, Post Nasal Drip, Sinus Pain, Sinus Pressure, Bleeding Gums, Change in Voice, Dental Pain, Dry Mouth, Dysphagia, Halitosis, Hoarsness, Lip Swelling, Mouth Lesions, Mouth Pain, Odynophagia, Sore Throat, Throat Swelling, Tongue Swelling, Facial Pain, Neck Pain, Neck Mass, Other - Cardiovascular Cardiovascular: Palpitations - Respiratory Respiratory: absent: As Per HPI, Cough, Dyspnea, Hemoptysis, Dyspnea on Exertion , Wheezing, Snoring, Stridor, Pain on Inspiration, Chest Congestion, Excessive Mucous Production, Change in Mucous Color, Pain with Coughing, Other - Gastrointestinal Gastrointestinal: absent: As Per HPI, Abdominal Pain, Belching, Bloating, Change in Bowel Habits, Change in Stool Character, Coffee Ground Emesis, Constipation, Cramping, Diarrhea, Dyspepsia, Dysphagia, Early Satiety, Excessive Flatus, Fecal Incontinence, Heartburn, Hematemesis, Hematochezia, Loose Stools, Melena, Nausea, Odynophagia, Temesmus, Vomiting, Other - Genitourinary Genitourinary: absent: As Per HPI, Change in Urinary Stream, Difficulty Urinating, Dysuria, Flank Pain, Hematuria, Pyuria, Nocturia, Urinary Incontinence, Urinary Frequency, Urinary Hesitance, Urinary Urgency, Voiding Freq/Small Amts, Freq UTI, Hx Renal/Bladder Calculi, Hx /Renal Surgery, Bladder Distension, Other - Musculoskeletal Musculoskeletal: absent: As Per HPI, Abnormal Gait, Arthralgias, Atrophy, Back Pain, Deformity, Joint Swelling, Limited Range of Motion, Loss of Height, Muscle Cramps, Muscle Weakness, Myalgias, Neck Pain, Numbness, Radiating Pain into Limb, Stiffness, Tingling, Other - Integumentary Integumentary: absent: As Per HPI, Acne, Alopecia, Bleeding Lesions, Change in Hair, Change in Nails, Change in Pigmentation, Changing Lesions, Dry Skin, Erythema, Furuncle, Hirsutism, Lesions, New Lesions, Non-Healing Lesions, Photosensitivity, Pruritus, Rash, Skin Pain, Skin Ulcer, Sores, Striae, Swelling , Unusual Bruising, Wounds, Jaundice, Other - Neurological Neurological: absent: As Per HPI, Abnormal Gait, Abnormal Hearing, Abnormal Movements, Abnormal Speech, Behavioral Changes, Burning Sensations, Confusion, Convulsions, Disequilibrium, Dizziness, Numbness, Focal Weakness, Frequent Falls , Headaches, Lack of Coordination, Loss of Vision, Memory Loss, Paresthesias, Radicular Pain, Restless Legs, Sensory Deficit, Syncope, Tingling, Tremor, Vertigo, Weakness, Other Visual Disturbances, Other - Psychiatric Psychiatric: absent: As Per HPI, Abnormal Sleep Pattern, Anhedonia, Anxiety, Auditory Hallucinations, Behavioral Changes, Change in Appetite, Change in Libido, Confusion, Depression, Difficulty Concentrating, Hallucinations, Homicidal Ideation, Hopelessness, Irritability, Memory Loss, Mood Swings, Panic Attacks, Paranoia, Suicidal Ideation, Visual Hallucinations, Tactile Hallucinations, Other - Endocrine Endocrine: absent: As Per HPI, Change in Body Appearance, Change in Libido, Cold Intolorance, Deepening of Voice, Excessive Sweating, Fatigue, Flushing, Heat Intolorance, Increase in Ring/Shoe/Hat Size, Palpitations, Polydipsia, Polyphagia, Polyuria, Other - Hematologic/Lymphatic Hematologic: absent: As Per HPI, Easy Bleeding, Easy Bruising, Lymphadenopathy, Other Past Patient History - Infectious Disease Hx of Infectious Diseases: None - Past Medical History & Family History Past Medical History?: Yes - Past Social History Smoking Status: Light Smoker < 10 Cigarettes Daily - CARDIAC Hx Hypercholesterolemia: Yes Hx Hypertension: Yes - PULMONARY Hx Respiratory Disorders: No - NEUROLOGICAL Hx Neurological Disorder: Yes - HEENT Hx HEENT Problems: No - RENAL Hx Chronic Kidney Disease: No - HEMATOLOGICAL/ONCOLOGICAL Hx Blood Disorders: No - INTEGUMENTARY Hx Dermatological Problems: No - MUSCULOSKELETAL/RHEUMATOLOGICAL Hx Musculoskeletal Disorders: No Hx Falls: No - GASTROINTESTINAL Hx Gastrointestinal Disorders: No - GENITOURINARY/GYNECOLOGICAL Hx Genitourinary Disorders: No - PSYCHIATRIC Hx Substance Use: No - SURGICAL HISTORY Hx Surgeries: No - ANESTHESIA Hx Anesthesia: No Meds Allergies/Adverse Reactions: Allergies Allergy/AdvReac Type Severity Reaction Status Date / Time No Known Allergies Allergy Verified 12/23/15 17:02 - Medications Medications: Current Medications Amlodipine Besylate (Norvasc) 10 mg PO DAILY [facility] Last Admin: 01/17/18 09:58 Dose: Not Given Clonidine HCl (Catapres) 0.3 mg PO Q8 [facility] Last Admin: 01/17/18 09:58 Dose: Not Given Hydralazine HCl (Apresoline) 100 mg PO TID [facility] Last Admin: 01/17/18 11:18 Dose: 100 mg Valsartan (Diovan) 320 mg PO DAILY [facility] Last Admin: 01/17/18 08:19 Dose: 320 mg Physical Exam - Constitutional Appears: Non-toxic - Head Exam Head Exam: NORMAL INSPECTION - Eye Exam Eye Exam: Normal appearance - ENT Exam ENT Exam: Mucous Membranes Moist - Neck Exam Neck exam: Positive for: Full Rom - Respiratory Exam Respiratory Exam: NORMAL BREATHING PATTERN - Cardiovascular Exam Cardiovascular Exam: REGULAR RHYTHM - GI/Abdominal Exam GI & Abdominal Exam: Normal Bowel Sounds - Rectal Exam Rectal Exam: Deferred - Extremities Exam Extremities exam: Positive for: pedal edema - Back Exam Back exam: NORMAL INSPECTION - Neurological Exam Neurological exam: Alert, Oriented x3 - Psychiatric Exam Psychiatric exam: Normal Affect - Skin Skin Exam: Normal Color Results - Vital Signs Recent Vital Signs: Last Vital Signs Temp 98.1 F 01/17/18 08:26 Pulse 49 L 01/17/18 08:26 Resp 18 01/17/18 08:26 BP 163/78 H 01/17/18 11:18 Pulse Ox 98 01/17/18 08:26 - Labs Result Diagrams: 01/16/18 06:00 01/16/18 06:00 - EKG Data EKG Interpreted by: Myself EKG shows normal: Sinus rhythm Assessment & Plan (1) Hypertensive urgency Assessment and Plan: will need aggressive medical therapy and blooe presusre control. adjust medications. risks of recurrent CVA discussed with the patient. Status: Acute
--- NOTE | 2018-01-17 11:53 | CP.PCM.PN ---
Subjective - Date & Time of Evaluation Date of Evaluation: 01/17/18 Time of Evaluation: 10:30 - Subjective Subjective: patient has no headache. he wants to go home. Objective - Vital Signs/Intake and Output Vital Signs (last 24 hours): Temp Pulse Resp BP Pulse Ox 98.1 F 49 L 18 163/78 H 98 01/17/18 08:26 01/17/18 08:26 01/17/18 08:26 01/17/18 11:18 01/17/18 08:26 - Medications Medications: Current Medications Amlodipine Besylate (Norvasc) 10 mg PO DAILY [facility] Last Admin: 01/17/18 09:58 Dose: Not Given Clonidine HCl (Catapres) 0.3 mg PO Q8 [facility] Last Admin: 01/17/18 09:58 Dose: Not Given Hydralazine HCl (Apresoline) 100 mg PO TID [facility] Last Admin: 01/17/18 11:18 Dose: 100 mg Valsartan (Diovan) 320 mg PO DAILY [facility] Last Admin: 01/17/18 08:19 Dose: 320 mg - Labs Labs: 01/16/18 06:00 01/16/18 06:00 PT 10.6 Seconds (9.8-13.1) 01/15/18 12:23 INR 1.0 (0.9-1.2) 01/15/18 12:23 APTT 40.9 Seconds (25.6-37.1) H 01/15/18 12:23 - Constitutional Appears: Non-toxic - Head Exam Head Exam: NORMAL INSPECTION - Eye Exam Eye Exam: Normal appearance - ENT Exam ENT Exam: Mucous Membranes Moist - Neck Exam Neck Exam: Full ROM - Respiratory Exam Respiratory Exam: NORMAL BREATHING PATTERN - Cardiovascular Exam Cardiovascular Exam: REGULAR RHYTHM - GI/Abdominal Exam GI & Abdominal Exam: Normal Bowel Sounds - Rectal Exam Rectal Exam: Deferred - Extremities Exam Extremities Exam: Pedal Edema - Back Exam Back Exam: NORMAL INSPECTION - Neurological Exam Neurological Exam: Alert - Psychiatric Exam Psychiatric exam: Normal Affect - Skin Skin Exam: Normal Color Assessment and Plan (1) Hypertensive urgency Assessment & Plan: improved blood pressure control. stable from cardiac standpoint. Status: Acute
[2018-01-17 12:43] LABS: HDL CHOLESTEROL 62 MG/DL (30-70)
[2018-01-17 12:54] LABS: LDL CHOLESTEROL 91 mg/dL (0-129)
[2018-01-17 13:19] VITALS: BP 145/83; PULSE 62; TEMP 97.7
--- NOTE | 2018-01-18 07:51 | CON ---
DATE: 01/17/2018 HISTORY OF PRESENT ILLNESS: The patient is a 57-year-old male who was admitted from the emergency room for hypertension and subconjunctival hemorrhage in the left eye. PHYSICAL EXAMINATION: EYES: Visual acuity was 20/20 in both eyes. Conjunctival exam showed a large subconjunctival hemorrhage in the left eye. Corneal exam was normal. Extraocular movements exam was normal. Fundus exam was normal. ASSESSMENT: My assessment is that the patient has a subconjunctival hemorrhage in his left eye. PLAN: I reassured him that there was no damage and that would resolve within 10 days to 2 weeks. I advised him to see an office coordinator receptionist when he is discharged. Tad Okeefe MD
--- NOTE | 2018-01-18 08:08 | PQF GENQUE ---
This form is a permanent part of the medical record 01/18/18 Dr. Holly, After diagnostic workup is complete, please specify which condition the patient has: TIA or CVA ER: Hypertensive Urgency, TIA H&P: DRAFT: Accelerated HTN, possible TIA NEURO: 57 yr old mal with uncontolled hypertension who has a new right basal ganglia stroke that is causing these symptoms. I believe this is a lacunar stroke and secondary to hypertension. Discharge Summary DRAFT: Admitted for TIA and accelerated HTN CT HEAD: No acute intracranial hemorrhage. Moderate chronic white matter ischemic changes with multiple more discrete bilateral basal nuclei chronic appearing lacunar type infarcts. Note that the possibility of a small hyperacute infarct cannot be excluded on this study. Moderate generalized volume loss. MRI BRAIN: There is a small acute/subacute right post rule out basal ganglia infarct. Chronic white matter and basal nuclei ischemic changes as above. Moderate generalized volume loss. Medications: ASA, Antihypertensive meds Clarification of your documentation is requested to better reflect the severity of illness and intensity of treatment of your patient. Indicators present PHYSICIAN'S RESPONSE Based on your medical judgment of the clinical indicators outlined above please clarify the following: [] Practitioner response [] If unable to determine, please check the box, sign and date. Present On Admission (POA) Indicator: [] Present at the time of admission [] Not present at the time of admission [] Clinically Undetermined In responding to this query, please exercise your independent professional judgment. The fact that a question is asked does not imply that any particular answer is desired or expected. Thank you for your clarification on this documentation. If you have any questions please call:[phone] Thank you, Rhiannon Wyman RN [facility]
== END 2018-01-17 15:14 | disposition home or self-care (01) | DRG 14 ==
LOC: H.ER 09:45 → H.ERHOLD 13:08 → H.TEL 19:54 → OBSVTOIN 01-16 13:08
PROVIDERS: ADMIT Family Medicine; ATTEND Family Medicine
PROC: 3E0234Z Introduction of Serum, Toxoid and Vaccine into Muscle, Percutaneous Approach (ICD-10-PCS; principal; 2018-01-16)
DX: I63.9 Cerebral infarction, unspecified (principal); H11.32 Conjunctival hemorrhage, left eye; I10 Essential (primary) hypertension; Z23 Encounter for immunization; Z91.14 Patient's other noncompliance with medication regimen; Z86.73 Personal history of transient ischemic attack (TIA), and cerebral infarction without residual deficits; E78.00 Pure hypercholesterolemia, unspecified; F17.210 Nicotine dependence, cigarettes, uncomplicated

== ENCOUNTER 2018-04-03 08:36 | Inpatient (IN) | payer OTHER ==
[2018-04-03 08:41] VITALS: BMI 34.0
--- NOTE | 2018-04-03 09:02 | ED PDOC ---
Syncope/Near Syncope/Dizziness Time Seen by Provider: 04/03/18 08:48 Chief Complaint (Nursing): Abdominal Pain History Per: Patient Onset/Duration Of Symptoms: Hrs (1) Current Symptoms Are (Timing): Better Associated Symptoms Preceding Syncopal Episode: No Predromal Symptoms (Sudden Onset) Seizure Or Post-ictal Symptoms: None Fall Associated With With Symptoms: No Severity: Mild Additional Complaint(s): Lightheadedness assoc with nausea and 1 episode vomiting this AM. Denies chest pain or palpitations. No LOC. Denies abd pain. Past Medical History Vital Signs: Last Vital Signs Temp 97 F L 04/03/18 08:40 Pulse 45 L 04/03/18 08:40 Resp 24 04/03/18 08:40 BP 201/91 H 04/03/18 08:40 Pulse Ox 97 04/03/18 08:40 - Medical History PMH: CVA (2004), HTN, Hypercholesterolemia Denies: Chronic Kidney Disease - Family History Family History: States: Unknown Family Hx - Home Medications Home Medications: Ambulatory Orders Medication Instructions Recorded Valsartan [Diovan] 320 mg PO DAILY 30 Days #30 tab 01/17/18 amLODIPine [Norvasc] 10 mg PO DAILY #30 tab 01/17/18 hydrALAZINE [Apresoline] 100 mg PO TID #30 tab 01/17/18 - Allergies Allergies/Adverse Reactions: Allergies Allergy/AdvReac Type Severity Reaction Status Date / Time No Known Allergies Allergy Verified 12/23/15 17:02 Review of Systems ROS Statement: Except As Marked, All Systems Reviewed And Found Negative Cardiovascular: Negative for: Chest Pain, Palpitations Gastrointestinal: Positive for: Nausea, Vomiting. Negative for: Abdominal Pain Neurological: Positive for: Dizziness Physical Exam - Reviewed Nursing Documentation Reviewed: Yes Vital Signs Reviewed: Yes - Physical Exam Appears: Positive for: Non-toxic, No Acute Distress Head Exam: Positive for: ATRAUMATIC, NORMAL INSPECTION, NORMOCEPHALIC Skin: Positive for: Normal Color, Warm, DRY Eye Exam: Positive for: EOMI, Normal appearance, PERRL ENT: Positive for: Normal ENT Inspection Neck: Positive for: Normal, Painless ROM Cardiovascular/Chest: Positive for: Regular Rate, Rhythm Respiratory: Positive for: CNT, Normal Breath Sounds Gastrointestinal/Abdominal: Positive for: Normal Exam, Soft Back: Positive for: Normal Inspection Extremity: Positive for: Normal ROM Neurologic/Psych: Positive for: Alert, Oriented - Laboratory Results Result Diagrams: 04/03/18 09:11 04/03/18 09:11 - ECG O2 Sat by Pulse Oximetry: 97 Disposition - Clinical Impression Clinical Impression: Bradycardia - Patient ED Disposition Is Patient to be Admitted: Yes - Disposition Disposition Time: 09:55 Condition: FAIR Forms: [facility] ([place]) - Pt Status Changed To: Hospital Disposition Of: Observation - POA Present On Arrival: None
[2018-04-03 09:15] LABS: BASO # 0.1 K/uL (0.0-0.2); EOS # 0.2 K/uL (0.0-0.7); EOS % 2.3 % (0.0-4.0); HEMOGLOBIN 13.7 g/dL (12.0-18.0); LYMPH # 1.3 K/uL (1.0-4.3); LYMPH % 17.5 % (20.0-40.0); MEAN CELL VOLUME 85.9 fl (80.0-94.0); MEAN CORPUSCULAR HGB CONC 32.6 g/dL (33.0-37.0); MEAN PLATELET VOLUME 8.6 fl (7.2-11.7); MONO # 0.4 K/uL (0.0-0.8); MONO % 5.9 % (0.0-10.0); NEUT # 5.4 K/uL (1.8-7.0); NEUT % 73.3 % (50.0-75.0); NRBC % 0.1 % (0.0-0.0); RBC 4.88 Mil/uL (4.40-5.90); RED CELL DISTRIBUTION WIDTH 14.9 % (11.5-14.5); WHITE BLOOD COUNT 7.4 K/uL (4.8-10.8)
[2018-04-03 09:27] LABS: ALB/GLOB RATIO 1.3 (1.0-2.1); ALBUMIN 3.8 g/dL (3.5-5.0); ALT/SGPT 30 U/L (21-72); AST/SGOT 23 U/L (17-59); BLOOD UREA NITROGEN 21 mg/dl (9-20); CALCIUM 8.8 mg/dL (8.4-10.2); GFR NON-AFRICAN AMERICAN > 60
--- NOTE | 2018-04-03 10:25 | CP.PCM.CON ---
History of Present Illness - History of Present Illness History of Present Illness: I was asked to see patient by Dr Holly Patient is a 57 year old male with HTN, TIA medicaiton noncompliance who presents with abdominal pain and headache. Patient has not taken medication for the last week, and was noted to have abdominal pain and nausea this morning. He vomited and then presented to ER. Eg showed inferolateral T wave abnormalities. Review of Systems - Constitutional Constitutional: Weakness - EENT Eyes: absent: As Per HPI, Blind Spots, Blurred Vision, Change in Vision, Decreased Night Vision, Diplopia, Discharge, Dry Eye, Exophthalmos, Floaters, Irritation, Itchy Eyes, Loss of Peripheral Vision, Pain, Photophobia, Requires Corrective Lenses, Sees Flashes, Spots in Vision, Tunnel Vision, Other Visual Disturbances, Loss of Vision, Other Ears: absent: As Per HPI, Decreased Hearing, Ear Discharge, Ear Pain, Tinnitus, Abnormal Hearing, Disequilibrium, Dizziness, Other Nose/Mouth/Throat: absent: As Per HPI, Epistaxis, Nasal Congestion, Nasal Discharge, Nasal Obstruction, Nasal Trauma, Nose Pain, Post Nasal Drip, Sinus Pain, Sinus Pressure, Bleeding Gums, Change in Voice, Dental Pain, Dry Mouth, Dysphagia, Halitosis, Hoarsness, Lip Swelling, Mouth Lesions, Mouth Pain, Odynophagia, Sore Throat, Throat Swelling, Tongue Swelling, Facial Pain, Neck Pain, Neck Mass, Other - Cardiovascular Cardiovascular: absent: As Per HPI, Acrocyanosis, Chest Pain, Chest Pain at Rest , Chest Pain with Activity, Claudication, Diaphoresis, Dyspnea, Dyspnea on Exertion, Edema, Irregular Heart Rhythm, Pain Radiating to Arm/Neck/Jaw, Leg Edema, Leg Ulcers, Lightheadedness, Orthopnea, Palpitations, Paroxysmal Nocturnal Dyspnea, Pedal Edema, Radiating Pain, Rapid Heart Rate, Slow Heart Rate, Syncope, Other - Respiratory Respiratory: absent: As Per HPI, Cough, Dyspnea, Hemoptysis, Dyspnea on Exertion , Wheezing, Snoring, Stridor, Pain on Inspiration, Chest Congestion, Excessive Mucous Production, Change in Mucous Color, Pain with Coughing, Other - Gastrointestinal Gastrointestinal: Abdominal Pain, Nausea - Genitourinary Genitourinary: absent: As Per HPI, Change in Urinary Stream, Difficulty Urinating, Dysuria, Flank Pain, Hematuria, Pyuria, Nocturia, Urinary Incontinence, Urinary Frequency, Urinary Hesitance, Urinary Urgency, Voiding Freq/Small Amts, Freq UTI, Hx Renal/Bladder Calculi, Hx /Renal Surgery, Bladder Distension, Other - Musculoskeletal Musculoskeletal: absent: As Per HPI, Abnormal Gait, Arthralgias, Atrophy, Back Pain, Deformity, Joint Swelling, Limited Range of Motion, Loss of Height, Muscle Cramps, Muscle Weakness, Myalgias, Neck Pain, Numbness, Radiating Pain into Limb, Stiffness, Tingling, Other - Integumentary Integumentary: absent: As Per HPI, Acne, Alopecia, Bleeding Lesions, Change in Hair, Change in Nails, Change in Pigmentation, Changing Lesions, Dry Skin, Erythema, Furuncle, Hirsutism, Lesions, New Lesions, Non-Healing Lesions, Photosensitivity, Pruritus, Rash, Skin Pain, Skin Ulcer, Sores, Striae, Swelling , Unusual Bruising, Wounds, Jaundice, Other - Neurological Neurological: absent: As Per HPI, Abnormal Gait, Abnormal Hearing, Abnormal Movements, Abnormal Speech, Behavioral Changes, Burning Sensations, Confusion, Convulsions, Disequilibrium, Dizziness, Numbness, Focal Weakness, Frequent Falls , Headaches, Lack of Coordination, Loss of Vision, Memory Loss, Paresthesias, Radicular Pain, Restless Legs, Sensory Deficit, Syncope, Tingling, Tremor, Vertigo, Weakness, Other Visual Disturbances, Other - Psychiatric Psychiatric: absent: As Per HPI, Abnormal Sleep Pattern, Anhedonia, Anxiety, Auditory Hallucinations, Behavioral Changes, Change in Appetite, Change in Libido, Confusion, Depression, Difficulty Concentrating, Hallucinations, Homicidal Ideation, Hopelessness, Irritability, Memory Loss, Mood Swings, Panic Attacks, Paranoia, Suicidal Ideation, Visual Hallucinations, Tactile Hallucinations, Other - Endocrine Endocrine: absent: As Per HPI, Change in Body Appearance, Change in Libido, Cold Intolorance, Deepening of Voice, Excessive Sweating, Fatigue, Flushing, Heat Intolorance, Increase in Ring/Shoe/Hat Size, Palpitations, Polydipsia, Polyphagia, Polyuria, Other - Hematologic/Lymphatic Hematologic: absent: As Per HPI, Easy Bleeding, Easy Bruising, Lymphadenopathy, Other Past Patient History - Infectious Disease Hx of Infectious Diseases: None - Past Medical History & Family History Past Medical History?: Yes - Past Social History Smoking Status: Heavy Smoker > 10 Cigarettes Daily - CARDIAC Hx Cardiac Disorders: Yes - PULMONARY Hx Respiratory Disorders: No - NEUROLOGICAL Hx Neurological Disorder: Yes - HEENT Hx HEENT Problems: No - RENAL Hx Chronic Kidney Disease: No - HEMATOLOGICAL/ONCOLOGICAL Hx Blood Disorders: No - INTEGUMENTARY Hx Dermatological Problems: No - MUSCULOSKELETAL/RHEUMATOLOGICAL Hx Musculoskeletal Disorders: No Hx Falls: No - GASTROINTESTINAL Hx Gastrointestinal Disorders: No - GENITOURINARY/GYNECOLOGICAL Hx Genitourinary Disorders: No - PSYCHIATRIC Hx Psychophysiologic Disorder: No Hx Substance Use: No - SURGICAL HISTORY Hx Surgeries: No - ANESTHESIA Hx Anesthesia: No Meds Allergies/Adverse Reactions: Allergies Allergy/AdvReac Type Severity Reaction Status Date / Time No Known Allergies Allergy Verified 12/23/15 17:02 Physical Exam - Constitutional Appears: Non-toxic - Head Exam Head Exam: NORMAL INSPECTION - Neck Exam Neck exam: Positive for: Normal Inspection - Respiratory Exam Respiratory Exam: Decreased Breath Sounds - Cardiovascular Exam Cardiovascular Exam: Bradycardia - GI/Abdominal Exam GI & Abdominal Exam: Normal Bowel Sounds - Rectal Exam Rectal Exam: Deferred - Extremities Exam Extremities exam: Positive for: pedal edema - Back Exam Back exam: NORMAL INSPECTION - Neurological Exam Neurological exam: Alert - Psychiatric Exam Psychiatric exam: Normal Affect - Skin Skin Exam: Normal Color Results - Vital Signs Recent Vital Signs: Last Vital Signs Temp 97 F L 04/03/18 08:40 Pulse 44 L 04/03/18 10:21 Resp 12 04/03/18 10:21 BP 154/90 H 04/03/18 10:21 Pulse Ox 97 04/03/18 09:55 - Labs Result Diagrams: 04/03/18 09:11 04/03/18 09:11 Labs: Laboratory Results - last 24 hr 04/03/18 04/03/18 04/03/18 08:52 09:11 09:11 WBC 7.4 RBC 4.88 Hgb 13.7 Hct 41.9 MCV 85.9 MCH 28.0 MCHC 32.6 L RDW 14.9 H Plt Count 255 MPV 8.6 Neut % (Auto) 73.3 Lymph % (Auto) 17.[address] [place] % (Auto) 5.9 Eos % (Auto) 2.3 Baso % (Auto) 1.0 Neut # (Auto) 5.4 Lymph # (Auto) 1.3 [place] # (Auto) 0.4 Eos # (Auto) 0.2 Baso # (Auto) 0.1 Sodium 139 Potassium 3.3 L Chloride 109 H Carbon Dioxide 24 Anion Gap 9 L BUN 21 H Creatinine 1.2 Est GFR ( Amer) > 60 Est GFR (Non-Af Amer) > 60 POC Glucose (mg/dL) 121 H Random Glucose 122 H Calcium 8.8 Total Bilirubin 0.8 AST 23 ALT 30 Alkaline Phosphatase 65 Troponin I 0.0160 Total Protein 6.8 Albumin 3.8 Globulin 3.0 Albumin/Globulin Ratio 1.3 - EKG Data EKG Interpreted by: Myself Assessment & Plan (1) Bradycardia Assessment and Plan: could be secondary to pain (vagal response). recommend serial cardaic ensymes to rule out atypical presentation of ACS. Status: Acute (2) Hypertension Assessment and Plan: discussed medication complaince. No betablocker. recommend Losartan 100 mg daily. Status: Acute
[2018-04-03 22:16] LABS: SQUAMOUS EPITHIAL < 1 /hpf (0-5); URINE BILIRUBIN NEGATIVE (NEGATIVE); URINE BLOOD NEGATIVE (NEGATIVE); URINE CLARITY CLEAR (Clear); URINE COLOR YELLOW (YELLOW); URINE GLUCOSE (UA) 150 mg/dL (Normal); URINE LEUKOCYTE ESTERASE NEG Leu/uL (Negative); URINE PROTEIN NEGATIVE (NEGATIVE); URINE UROBILINOGEN 0.2-1.0 mg/dL (0.2-1.0)
[2018-04-03 22:32] LABS: BARBITURATES, UR NEGATIVE (NEGATIVE); BENZODIAZEPINES, UR NEGATIVE (NEGATIVE); OPIATES, UR NEGATIVE (NEGATIVE); PHENCYCLIDINE, UR NEGATIVE (NEGATIVE)
[2018-04-04] MEDS: Dextrose 5%/Lactated Ringer's 1,000 ML IV SCH ×2 (10:13→21:27)
--- NOTE | 2018-04-04 10:54 | CP.PCM.CON ---
<Jose Francisco Kwok - Last Filed: 04/04/18 10:49> History of Present Illness - History of Present Illness History of Present Illness: PGY-4 GI Fellow Consult Note Mr. Waters is a 57 yo Hisp Male with h/o HTN, TIA presenting with headache, n/v and abd pain. He states in the AM of 04/03/18 that he woke up with diffuse headache worse on L side and worse when he turns his head to the right. States shortly thereafter that he had N/V of clearish green emesis associated with a dull epigastric pain. Of note he states that he has not been taking his BP meds for at least the last 5 days. He states that he has nearly daily formed brown bowel movements. Denied any hematemesis, melena, hematochezia, sick contact, recent travel or abx. No prior endoscopies. 12 point ROS negative other than stated above MHx: See above SurgHx: Denied endoscopies Meds: Reviewed though not taking for days FamHx: Denied h/o GI problems SocHx: +tobacco abuse, denied sig etoh/illicits All: NKDA Past Patient History - Infectious Disease Hx of Infectious Diseases: None - Past Medical History & Family History Past Medical History?: Yes - Past Social History Smoking Status: Never Smoked - CARDIAC Hx Cardiac Disorders: Yes - PULMONARY Hx Respiratory Disorders: No - NEUROLOGICAL Hx Neurological Disorder: Yes - HEENT Hx HEENT Problems: No - RENAL Hx Chronic Kidney Disease: No - HEMATOLOGICAL/ONCOLOGICAL Hx Blood Disorders: No - INTEGUMENTARY Hx Dermatological Problems: No - MUSCULOSKELETAL/RHEUMATOLOGICAL Hx Musculoskeletal Disorders: No Hx Falls: No - GASTROINTESTINAL Hx Gastrointestinal Disorders: No - GENITOURINARY/GYNECOLOGICAL Hx Genitourinary Disorders: No - PSYCHIATRIC Hx Psychophysiologic Disorder: No Hx Substance Use: No - SURGICAL HISTORY Hx Surgeries: No - ANESTHESIA Hx Anesthesia: No Meds Allergies/Adverse Reactions: Allergies Allergy/AdvReac Type Severity Reaction Status Date / Time No Known Allergies Allergy Verified 12/23/15 17:02 - Medications Medications: Current Medications Acetaminophen (Tylenol 325mg Tab) 650 mg PO Q4 PRN PRN Reason: Headache Last Admin: 04/03/18 22:25 Dose: 650 mg Amlodipine Besylate (Norvasc) 10 mg PO DAILY FRANK Last Admin: 04/04/18 09:17 Dose: 10 mg Hydralazine HCl (Apresoline) 10 mg IV Q6 PRN PRN Reason: Systolic Blood Pressure Hydromorphone HCl (Dilaudid) 1 mg IVP Q4 PRN PRN Reason: Pain, moderate (4-7) Last Admin: 04/04/18 10:13 Dose: 1 mg Dextrose/Lactated Ringer's (Dextrose 5%/Lactated Ringer's) 1,000 mls @ 80 mls/ hr IV .[id number] [facility] Stop: 04/05/18 08:28 Last Admin: 04/04/18 10:13 Dose: 80 mls/hr Losartan Potassium (Cozaar) 100 mg PO DAILY [facility] Last Admin: 04/03/18 16:01 Dose: 100 mg Ondansetron HCl (Zofran Inj) 4 mg IVP Q6 PRN PRN Reason: Nausea/Vomiting Last Admin: 04/03/18 22:43 Dose: 4 mg Pantoprazole Sodium (Protonix Inj) 40 mg IVP DAILY [facility] Last Admin: 04/04/18 09:17 Dose: 40 mg Physical Exam - Constitutional Additional comments: uncomfortable, laying on R side, poor eye contact - Head Exam Head Exam: ATRAUMATIC, NORMAL INSPECTION - Eye Exam Eye Exam: EOMI. absent: Conjunctival injection, Scleral icterus - ENT Exam ENT Exam: Mucous Membranes Dry, Normal External Ear Exam. absent: Mucous Membranes Moist - Respiratory Exam Respiratory Exam: Clear to Auscultation Bilateral, NORMAL BREATHING PATTERN. absent: Accessory Muscle Use, Chest Wall Tenderness, Wheezes - Cardiovascular Exam Cardiovascular Exam: REGULAR RHYTHM, RRR - GI/Abdominal Exam GI & Abdominal Exam: Normal Bowel Sounds, Soft. absent: Distended, Firm, Guarding, Tenderness - Rectal Exam Rectal Exam: Deferred - Extremities Exam Extremities exam: Positive for: normal inspection. Negative for: pedal edema - Neurological Exam Neurological exam: Alert, CN II-XII Intact - Psychiatric Exam Psychiatric exam: Normal Affect, Normal Mood - Skin Skin Exam: Normal Color, Warm Results - Vital Signs Recent Vital Signs: Last Vital Signs Temp 97.7 F 04/04/18 08:40 Pulse 50 L 04/04/18 09:17 Resp 20 04/04/18 08:40 BP 166/79 H 04/04/18 09:17 Pulse Ox 97 04/04/18 08:40 - Labs Result Diagrams: 04/03/18 09:11 04/03/18 09:11 Labs: Laboratory Results - last 24 hr 04/03/18 04/03/18 04/03/18 18:52 19:40 22:05 Lipase 40 Urine Color Urine Clarity Urine pH Ur Specific Junction Urine Protein Urine Glucose (UA) Urine Ketones Urine Blood Urine Nitrate Urine Bilirubin Urine Urobilinogen Ur Leukocyte Esterase Urine RBC (Auto) Urine Microscopic WBC Ur Squamous Epith Cells Urine Opiates Screen Negative Urine Methadone Screen Negative Ur Barbiturates Screen Negative Ur Phencyclidine Scrn Negative Ur Amphetamines Screen Negative U Benzodiazepines Scrn Negative U Oth Cocaine Metabols Negative U Cannabinoids Screen Negative Alcohol, Quantitative < 10 04/03/18 22:05 Lipase Urine Color Yellow Urine Clarity Clear Urine pH 6.0 Ur Specific Junction 1.015 Urine Protein Negative Urine Glucose (UA) 150 Urine Ketones Trace Urine Blood Negative Urine Nitrate Negative Urine Bilirubin Negative Urine Urobilinogen 0.2-1.0 Ur Leukocyte Esterase Neg Urine RBC (Auto) 1 Urine Microscopic WBC < 1 Ur Squamous Epith Cells < 1 Urine Opiates Screen Urine Methadone Screen Ur Barbiturates Screen Ur Phencyclidine Scrn Ur Amphetamines Screen U Benzodiazepines Scrn U Oth Cocaine Metabols U Cannabinoids Screen Alcohol, Quantitative Assessment & Plan - Assessment and Plan (Free Text) Assessment: 57 yo BM with h/o HTN, TIA presenting with CARBONE, Abd Pain, N/V # Abd Pain, N/V: Suspect related to HTN Urgency as BP persistent > 200 systolic , up to 230 with reported associated headache. Would eval for intracranial process. Liver test unremarkable and lipase wnl. No dysphagia, weight loss etc. as patient reports stable health prior to acute onset of symptoms. # HTN Urg: Due to noncompliance with med x days Plan: - Recommend non-con Head CT - Will f/u RUQ US - BP control but would not drop too fast as could worsen symptoms as well - Consider further w/u should symtoms not resolve after BP control Pt seen and examined with Dr. Blanc <Desmond Blanc - Last Filed: 04/04/18 11:19> Meds - Medications Medications: Current Medications Acetaminophen (Tylenol 325mg Tab) 650 mg PO Q4 PRN PRN Reason: Headache Last Admin: 04/03/18 22:25 Dose: 650 mg Amlodipine Besylate (Norvasc) 10 mg PO DAILY [facility] Last Admin: 04/04/18 09:17 Dose: 10 mg Hydralazine HCl (Apresoline) 10 mg IV Q6 PRN PRN Reason: Systolic Blood Pressure Hydromorphone HCl (Dilaudid) 1 mg IVP Q4 PRN PRN Reason: Pain, moderate (4-7) Last Admin: 04/04/18 10:13 Dose: 1 mg Dextrose/Lactated Ringer's (Dextrose 5%/Lactated Ringer's) 1,000 mls @ 80 mls/ hr IV .[id number] [facility] Stop: 04/05/18 08:28 Last Admin: 04/04/18 10:13 Dose: 80 mls/hr Losartan Potassium (Cozaar) 100 mg PO DAILY [facility] Last Admin: 04/03/18 16:01 Dose: 100 mg Ondansetron HCl (Zofran Inj) 4 mg IVP Q6 PRN PRN Reason: Nausea/Vomiting Last Admin: 04/03/18 22:43 Dose: 4 mg Pantoprazole Sodium (Protonix Inj) 40 mg IVP DAILY [facility] Last Admin: 04/04/18 09:17 Dose: 40 mg Results - Vital Signs Recent Vital Signs: Last Vital Signs Temp 97.7 F 04/04/18 08:40 Pulse 50 L 04/04/18 09:17 Resp 20 04/04/18 08:40 BP 166/79 H 04/04/18 09:17 Pulse Ox 97 04/04/18 08:40 - Labs Result Diagrams: 04/03/18 09:11 04/03/18 09:11 Labs: Laboratory Results - last 24 hr 04/03/18 04/03/18 04/03/18 18:52 19:40 22:05 Lipase 40 Urine Color Urine Clarity Urine pH Ur Specific Junction Urine Protein Urine Glucose (UA) Urine Ketones Urine Blood Urine Nitrate Urine Bilirubin Urine Urobilinogen Ur Leukocyte Esterase Urine RBC (Auto) Urine Microscopic WBC Ur Squamous Epith Cells Urine Opiates Screen Negative Urine Methadone Screen Negative Ur Barbiturates Screen Negative Ur Phencyclidine Scrn Negative Ur Amphetamines Screen Negative U Benzodiazepines Scrn Negative U Oth Cocaine Metabols Negative U Cannabinoids Screen Negative Alcohol, Quantitative < 10 04/03/18 22:05 Lipase Urine Color Yellow Urine Clarity Clear Urine pH 6.0 Ur Specific Junction 1.015 Urine Protein Negative Urine Glucose (UA) 150 Urine Ketones Trace Urine Blood Negative Urine Nitrate Negative Urine Bilirubin Negative Urine Urobilinogen 0.2-1.0 Ur Leukocyte Esterase Neg Urine RBC (Auto) 1 Urine Microscopic WBC < 1 Ur Squamous Epith Cells < 1 Urine Opiates Screen Urine Methadone Screen Ur Barbiturates Screen Ur Phencyclidine Scrn Ur Amphetamines Screen U Benzodiazepines Scrn U Oth Cocaine Metabols U Cannabinoids Screen Alcohol, Quantitative Attending/Attestation - Attestation I have personally seen and examined this patient.: Yes I have fully participated in the care of the patient.: Yes I have reviewed all pertinent clinical information: Yes Notes (Text): 04/04/18 11:14 I have seen and examined patient with GI fellow. Agree with above documentation with the following additions. In brief, this is a 57 year old male with history of HTN, hyperlipidemia, TIA who presents to hospital with complaint of sudden onset headache upon awakening yesterday. This was followed by development of epigastric abdominal pain and non-bloody vomiting. Prior to this he was in usual state of health. He admits to not taking his blood pressure medication for the past 5 days. He currently endorses ongoing L sided headache but denies fever/chills, weight loss, rectal bleeding, or change in bowel habits. No prior endoscopic evaluation. Additional physical examination: Abdomen: no palpable hepato/splenomegaly HTN, uncontrolled with urgency Hyperlipidemia TIA Abdominal pain, vomiting - likely secondary to uncontrolled BP, though given prior h/o TIA must rule out intracranial process - Liquid diet as tolerated - Continue with PPI therapy - Anti-emetic therapy PRN - Suggest head CT imaging to rule out acute infarct - Follow up results of abdominal US - Blood pressure management as per medical team - Will continue to monitor patient clinical course
--- NOTE | 2018-04-04 11:19 | US ---
Date of service: 04/04/2018 HISTORY: Abdominal pain COMPARISON: None. TECHNIQUE: Sonographic evaluation of the abdomen. FINDINGS: LIVER: Measures approximately 11.4 cm. . Smooth contour however increased echotexture suggesting fatty infiltration however other infiltrative hepatic cellular disease process not excluded. . No mass. No intrahepatic bile duct dilatation. GALLBLADDER: Unremarkable. No gallstones. No pericholecystic fluid collections or sonographic Rosales sign COMMON BILE DUCT: Measures 4.2 mm. No stones. No dilatation. PANCREAS: Pancreas is not visualized due to body habitus and bowel gas RIGHT KIDNEY: Measures 10.3 x 6.4 x 5.5cm. Normal echogenicity. No calculus, mass, or hydronephrosis. LEFT KIDNEY: Measures 10.6 x 5.7 x 5.7cm. Normal echogenicity. No calculus, mass, or hydronephrosis. SPLEEN: Normal in size and contour. No mass. AORTA: Proximal aorta not visualized due to body habitus and bowel gas IVC: Not visualized OTHER FINDINGS: None. IMPRESSION: Slightly limited study as described. Findings suggest mild fatty infiltration however other infiltrative hepatic cellular disease process not excluded. Pancreas not visualized due to body habitus and bowel gas
--- NOTE | 2018-04-04 11:57 | CARD ---
APPROVED REPORT Date of service: 04/03/2018 EKG Measurement Heart [id number] <Conclusion> Sinus bradycardia with premature atrial complexes mminimal voltage for Left ventricular hypertrophy NT wave abnormality IVCD Abnormal ECG
--- NOTE | 2018-04-04 15:00 | CT ---
Date of service: 04/04/2018 PROCEDURE: CT HEAD WITHOUT CONTRAST. HISTORY: Headache COMPARISON: Comparison made with prior MRI brain 01/15/2018. TECHNIQUE: Axial computed tomography images were obtained through the head/brain without intravenous contrast. Radiation dose: Total exam DLP = 785.4 mGy-cm. This CT exam was performed using one or more of the following dose reduction techniques: Automated exposure control, adjustment of the mA and/or kV according to patient size, and/or use of iterative reconstruction technique. FINDINGS: HEMORRHAGE: No acute parenchymal, subarachnoid or extra-axial hemorrhage. BRAIN: Moderate diffuse/ confluent chronic periventricular white matter ischemic changes less well seen on this study as compared to high-resolution MRI. Multiple chronic appearing bilateral basal nuclei lacunar type infarcts also seen to better advantage on prior MRI. Note that the possibility of a small hyperacute infarct cannot be excluded on this study. No obvious parenchymal nor extra-axial mass or collection identified on this noncontrast study. Moderate generalized volume loss. VENTRICLES: . No obstructive hydrocephalus. CALVARIUM: Calvarium intact PARANASAL SINUSES: Mild moderate mucosal thickening left maxillary antrum. Mild mucosal thickening seen within the ethmoid air complex. MASTOID AIR CELLS: Unremarkable as visualized. No inflammatory changes. OTHER FINDINGS: None. IMPRESSION: No acute intracranial hemorrhage. Moderate chronic white matter ischemic changes with multiple chronic appearing bilateral basal nuclei lacunar type infarcts. Note that the possibility of a small hyperacute infarct cannot be excluded on this exam. Moderate volume loss.
[2018-04-05 05:19] LABS: BASO # 0.1 K/uL (0.0-0.2); BASO % 1.2 % (0.0-2.0); EOS # 0.1 K/uL (0.0-0.7); EOS % 0.9 % (0.0-4.0); HEMOGLOBIN 14.6 g/dL (12.0-18.0); LYMPH # 1.8 K/uL (1.0-4.3); MEAN CELL VOLUME 86.5 fl (80.0-94.0); MEAN CORPUSCULAR HEMOGLOBIN 28.2 pg (27.0-31.0); MEAN CORPUSCULAR HGB CONC 32.6 g/dL (33.0-37.0); MEAN PLATELET VOLUME 8.8 fl (7.2-11.7); MONO # 0.7 K/uL (0.0-0.8); MONO % 8.3 % (0.0-10.0); NEUT % 68.6 % (50.0-75.0); NRBC % 0.1 % (0.0-0.0); RBC 5.19 Mil/uL (4.40-5.90); RED CELL DISTRIBUTION WIDTH 15.1 % (11.5-14.5); WHITE BLOOD COUNT 8.8 K/uL (4.8-10.8)
[2018-04-05 05:56] LABS: ALB/GLOB RATIO 1.2 (1.0-2.1); ALBUMIN 3.6 g/dL (3.5-5.0); ALT/SGPT 28 U/L (21-72); AST/SGOT 28 U/L (17-59); BLOOD UREA NITROGEN 18 mg/dl (9-20); CALCIUM 9.3 mg/dL (8.4-10.2); GFR NON-AFRICAN AMERICAN > 60
--- NOTE | 2018-04-05 06:23 | CP.PCM.HP ---
History of Present Illness - History of Present Illness History of Present Illness: This is a 57 y/o male with hx of HTN CAD, previous CVA admitted for intractable vomiting and epigastric pain. At the ER he was also noted to have very elevated BP with systolic of 200 plus. He has not been compliant with his medications. He apparently ran out of BP meds for a week. He started vomiting after having a meal in a restaurant. he had few episodes of vomiting and has epigastric pain since. He denies fever or diarrhea. He had a CVA previously. He was hospitalized for epigastric pain in the past. Had no follow up with a GI. Present on Admission - Present on Admission Any Indicators Present on Admission: No History of DVT/PE: No History of Uncontrolled Diabetes: No Urinary Catheter: No Decubitus Ulcer Present: No Review of Systems - Gastrointestinal Gastrointestinal: Abdominal Pain, Heartburn, Nausea Past Patient History - Infectious Disease Hx of Infectious Diseases: None - Past Medical History & Family History Past Medical History?: Yes - Past Social History Smoking Status: Never Smoked - CARDIAC Hx Cardiac Disorders: Yes - PULMONARY Hx Respiratory Disorders: No - NEUROLOGICAL Hx Neurological Disorder: Yes - HEENT Hx HEENT Problems: No - RENAL Hx Chronic Kidney Disease: No - HEMATOLOGICAL/ONCOLOGICAL Hx Blood Disorders: No - INTEGUMENTARY Hx Dermatological Problems: No - MUSCULOSKELETAL/RHEUMATOLOGICAL Hx Musculoskeletal Disorders: No Hx Falls: No - GASTROINTESTINAL Hx Gastrointestinal Disorders: No - GENITOURINARY/GYNECOLOGICAL Hx Genitourinary Disorders: No - PSYCHIATRIC Hx Psychophysiologic Disorder: No Hx Substance Use: No - SURGICAL HISTORY Hx Surgeries: No - ANESTHESIA Hx Anesthesia: No Meds Allergies/Adverse Reactions: Allergies Allergy/AdvReac Type Severity Reaction Status Date / Time No Known Allergies Allergy Verified 12/23/15 17:02 Physical Exam - Head Exam Head Exam: NORMAL INSPECTION - Eye Exam Eye Exam: Normal appearance - Respiratory Exam Respiratory Exam: Clear to Auscultation Bilateral - Cardiovascular Exam Cardiovascular Exam: Bradycardia - GI/Abdominal Exam GI & Abdominal Exam: Guarding, Normal Bowel Sounds, Tenderness Additional comments: epigastric tenderness - Neurological Exam Neurological exam: Normal Gait - Psychiatric Exam Psychiatric exam: Normal Mood Results - Vital Signs Recent Vital Signs: Last Vital Signs Temp 97.8 F 04/05/18 05:28 Pulse 48 L 04/05/18 05:28 Resp 18 04/05/18 05:28 BP 161/77 H 04/05/18 05:28 Pulse Ox 98 04/05/18 05:28 - Labs Result Diagrams: 04/05/18 04:45 04/05/18 04:45 Labs: Laboratory Results - last 24 hr 04/05/18 04/05/18 04:45 04:45 WBC 8.8 RBC 5.19 Hgb 14.6 Hct 44.9 MCV 86.5 MCH 28.2 MCHC 32.6 L RDW 15.1 H Plt Count 278 MPV 8.8 Neut % (Auto) 68.6 Lymph % (Auto) 21.0 [place] % (Auto) 8.3 Eos % (Auto) 0.9 Baso % (Auto) 1.2 Neut # (Auto) 6.0 Lymph # (Auto) 1.8 [place] # (Auto) 0.7 Eos # (Auto) 0.1 Baso # (Auto) 0.1 Sodium 141 Potassium 3.3 L Chloride 109 H Carbon Dioxide 28 Anion Gap 7 L BUN 18 Creatinine 1.2 Est GFR ( Amer) > 60 Est GFR (Non-Af Amer) > 60 Random Glucose 94 Calcium 9.3 Total Bilirubin 0.7 AST 28 ALT 28 Alkaline Phosphatase 60 Total Protein 6.6 Albumin 3.6 Globulin 3.0 Albumin/Globulin Ratio 1.2 Assessment & Plan (1) Gastritis Status: Acute (2) Food poisoning Status: Acute (3) Hypertensive urgency Status: Acute (4) Bradycardia Status: Acute (5) TIA (transient ischemic attack) Status: Acute - Assessment and Plan (Free Text) Plan: Cont meds clear liquids Zofran IV fluids if not tolerating po check lipase BP control. check other labs. lipis A1c cmp tsh
--- NOTE | 2018-04-05 06:26 | CP.PCM.PN ---
Subjective - Date & Time of Evaluation Date of Evaluation: 04/04/18 Time of Evaluation: 09:00 - Subjective Subjective: Patient continues to have a lot of abd pain Also complains of headaches Had no intake for more than 48 hrs Has no fever. Objective - Vital Signs/Intake and Output Vital Signs (last 24 hours): Temp Pulse Resp BP Pulse Ox 97.8 F 48 L 18 161/77 H 98 04/05/18 05:28 04/05/18 05:28 04/05/18 05:28 04/05/18 05:28 04/05/18 05:28 - Medications Medications: Current Medications Acetaminophen (Tylenol 325mg Tab) 650 mg PO Q4 PRN PRN Reason: Headache Last Admin: 04/03/18 22:25 Dose: 650 mg Amlodipine Besylate (Norvasc) 10 mg PO DAILY [facility] Last Admin: 04/04/18 09:17 Dose: 10 mg Hydralazine HCl (Apresoline) 10 mg IV Q6 PRN PRN Reason: Systolic Blood Pressure Last Admin: 04/04/18 21:24 Dose: 10 mg Hydromorphone HCl (Dilaudid) 1 mg IVP Q4 PRN PRN Reason: Pain, moderate (4-7) Last Admin: 04/04/18 10:13 Dose: 1 mg Dextrose/Lactated Ringer's (Dextrose 5%/Lactated Ringer's) 1,000 mls @ 80 mls/ hr IV .[id number] [facility] Stop: 04/05/18 08:28 Last Admin: 04/04/18 21:27 Dose: Not Given Losartan Potassium (Cozaar) 100 mg PO DAILY [facility] Last Admin: 04/04/18 12:35 Dose: 100 mg Ondansetron HCl (Zofran Inj) 4 mg IVP Q6 PRN PRN Reason: Nausea/Vomiting Last Admin: 04/03/18 22:43 Dose: 4 mg Pantoprazole Sodium (Protonix Inj) 40 mg IVP DAILY [facility] Last Admin: 04/04/18 09:17 Dose: 40 mg - Labs Labs: 04/05/18 04:45 04/05/18 04:45 - Head Exam Head Exam: NORMAL INSPECTION - Eye Exam Eye Exam: Normal appearance - ENT Exam ENT Exam: Mucous Membranes Moist - Respiratory Exam Respiratory Exam: Clear to Ausculation Bilateral - GI/Abdominal Exam GI & Abdominal Exam: Tenderness - Neurological Exam Neurological Exam: Awake, Oriented x3 Assessment and Plan (1) Gastritis Status: Acute (2) Food poisoning Status: Acute (3) Bradycardia Status: Acute (4) Hypertension Status: Acute (5) TIA (transient ischemic attack) Status: Acute (6) Headache Status: Acute - Assessment and Plan (Free Text) Plan: NPO start IV GI eval pantoprazole carafate
[2018-04-05] MEDS ORDERED: Gadodiamide 287 MG/ML VIAL (15ML) IV ONE (09:45)
--- NOTE | 2018-04-05 09:49 | CP.PCM.PN ---
Subjective - Date & Time of Evaluation Date of Evaluation: 04/05/18 Time of Evaluation: 07:30 - Subjective Subjective: PGY5 GI Follow-up Pt seen and examined bedside tolerating reg diet denies any nausea or vomiting or abd pain ROS: 12 point ROS conducted, neg other than above Objective - Vital Signs/Intake and Output Vital Signs (last 24 hours): Temp Pulse Resp BP Pulse Ox 98.2 F 48 L 20 153/74 H 98 04/05/18 08:03 04/05/18 08:18 04/05/18 08:03 04/05/18 08:18 04/05/18 08:03 - Medications Medications: Current Medications Acetaminophen (Tylenol 325mg Tab) 650 mg PO Q4 PRN PRN Reason: Headache Last Admin: 04/03/18 22:25 Dose: 650 mg Amlodipine Besylate (Norvasc) 10 mg PO DAILY [facility] Last Admin: 04/05/18 08:18 Dose: 10 mg Hydralazine HCl (Apresoline) 10 mg IV Q6 PRN PRN Reason: Systolic Blood Pressure Last Admin: 04/04/18 21:24 Dose: 10 mg Hydromorphone HCl (Dilaudid) 1 mg IVP Q4 PRN PRN Reason: Pain, moderate (4-7) Last Admin: 04/04/18 10:13 Dose: 1 mg Losartan Potassium (Cozaar) 100 mg PO DAILY [facility] Last Admin: 04/05/18 08:17 Dose: 100 mg Ondansetron HCl (Zofran Inj) 4 mg IVP Q6 PRN PRN Reason: Nausea/Vomiting Last Admin: 04/03/18 22:43 Dose: 4 mg Pantoprazole Sodium (Protonix Inj) 40 mg IVP DAILY [facility] Last Admin: 04/05/18 08:18 Dose: 40 mg - Labs Labs: 04/05/18 04:45 04/05/18 04:45 - Constitutional Appears: Well, No Acute Distress - Head Exam Head Exam: ATRAUMATIC, NORMOCEPHALIC - Eye Exam Eye Exam: Normal appearance - ENT Exam ENT Exam: Mucous Membranes Moist, Normal Exam - Neck Exam Neck Exam: Normal Inspection - Respiratory Exam Respiratory Exam: Clear to Ausculation Bilateral, NORMAL BREATHING PATTERN. absent: Wheezes, Respiratory Distress - Cardiovascular Exam Cardiovascular Exam: REGULAR RHYTHM, +S1, +S2 - GI/Abdominal Exam GI & Abdominal Exam: Soft, Normal Bowel Sounds. absent: Distended, Firm, Guarding, Rigid, Tenderness, Organomegaly - Extremities Exam Extremities Exam: absent: Joint Swelling, Pedal Edema - Neurological Exam Neurological Exam: Alert, Awake, Oriented x3 - Psychiatric Exam Psychiatric exam: Normal Affect, Normal Mood - Skin Skin Exam: Dry, Intact, Normal Color, Warm Assessment and Plan - Assessment and Plan (Free Text) Assessment: 57 year old male with history of HTN, hyperlipidemia, TIA who presents to hospital with complaint of sudden onset headache upon awakening yesterday. Abdominal pain, vomiting; resolved HTN, uncontrolled with urgency Hyperlipidemia TIA - reg diet as tolerated - Continue with PPI therapy - Blood pressure management as per medical team - abd u/s fatty infiltration - needs colonoscopy as an outpt -will sign, off, pls reconsult if needed Will D/W Dr. Bentley
[2018-04-05] MEDS ORDERED: Potassium Chloride 20 mEq ER Tab PO ONE (12:13)
--- NOTE | 2018-04-05 16:03 | CP.PCM.PN ---
Subjective - Date & Time of Evaluation Date of Evaluation: 04/05/18 Time of Evaluation: 15:45 - Subjective Subjective: patient has intermittent headache Objective - Vital Signs/Intake and Output Vital Signs (last 24 hours): Temp Pulse Resp BP Pulse Ox 98.3 F 52 L 17 154/85 H 99 04/05/18 15:45 04/05/18 15:45 04/05/18 15:45 04/05/18 15:45 04/05/18 15:45 - Medications Medications: Current Medications Acetaminophen (Tylenol 325mg Tab) 650 mg PO Q4 PRN PRN Reason: Headache Last Admin: 04/03/18 22:25 Dose: 650 mg Amlodipine Besylate (Norvasc) 10 mg PO DAILY [facility] Last Admin: 04/05/18 08:18 Dose: 10 mg Hydralazine HCl (Apresoline) 10 mg IV Q6 PRN PRN Reason: Systolic Blood Pressure Last Admin: 04/05/18 12:47 Dose: 10 mg Hydrochlorothiazide (Microzide) 12.5 mg PO DAILY [facility] Last Admin: 04/05/18 15:54 Dose: 12.5 mg Hydromorphone HCl (Dilaudid) 1 mg IVP Q4 PRN PRN Reason: Pain, moderate (4-7) Last Admin: 04/04/18 10:13 Dose: 1 mg Losartan Potassium (Cozaar) 100 mg PO DAILY [facility] Last Admin: 04/05/18 08:17 Dose: 100 mg Ondansetron HCl (Zofran Inj) 4 mg IVP Q6 PRN PRN Reason: Nausea/Vomiting Last Admin: 04/03/18 22:43 Dose: 4 mg Pantoprazole Sodium (Protonix Inj) 40 mg IVP DAILY [facility] Last Admin: 04/05/18 08:18 Dose: 40 mg - Labs Labs: 04/05/18 04:45 04/05/18 04:45 - Constitutional Appears: Non-toxic - Head Exam Head Exam: NORMAL INSPECTION - Eye Exam Eye Exam: Normal appearance - ENT Exam ENT Exam: Mucous Membranes Moist - Neck Exam Neck Exam: Full ROM - Respiratory Exam Respiratory Exam: NORMAL BREATHING PATTERN - Cardiovascular Exam Cardiovascular Exam: REGULAR RHYTHM - GI/Abdominal Exam GI & Abdominal Exam: Normal Bowel Sounds - Rectal Exam Rectal Exam: Deferred - Extremities Exam Extremities Exam: absent: Pedal Edema - Back Exam Back Exam: NORMAL INSPECTION - Neurological Exam Neurological Exam: Alert - Psychiatric Exam Psychiatric exam: Normal Affect - Skin Skin Exam: Normal Color Assessment and Plan (1) Bradycardia Assessment & Plan: hemodynamically stable. will monitor Status: Acute (2) Hypertension Assessment & Plan: will add HCTZ 25 mg daily Status: Acute
[2018-04-06 06:24] LABS: BASO # 0.1 K/uL (0.0-0.2); BASO % 0.8 % (0.0-2.0); EOS # 0.2 K/uL (0.0-0.7); EOS % 1.9 % (0.0-4.0); HEMOGLOBIN 14.4 g/dL (12.0-18.0); LYMPH # 2.3 K/uL (1.0-4.3); LYMPH % 26.3 % (20.0-40.0); MEAN CELL VOLUME 86.9 fl (80.0-94.0); MEAN CORPUSCULAR HEMOGLOBIN 28.1 pg (27.0-31.0); MEAN CORPUSCULAR HGB CONC 32.3 g/dL (33.0-37.0); MEAN PLATELET VOLUME 9.1 fl (7.2-11.7); MONO # 0.7 K/uL (0.0-0.8); MONO % 8.7 % (0.0-10.0); NEUT # 5.3 K/uL (1.8-7.0); NEUT % 62.3 % (50.0-75.0); RBC 5.11 Mil/uL (4.40-5.90); RED CELL DISTRIBUTION WIDTH 15.4 % (11.5-14.5); WHITE BLOOD COUNT 8.6 K/uL (4.8-10.8)
[2018-04-06 14:24] LABS: BLOOD UREA NITROGEN 28 mg/dl (9-20); CALCIUM 9.2 mg/dL (8.4-10.2); GFR NON-AFRICAN AMERICAN 53
[2018-04-06] MEDS ORDERED: Potassium Chloride 20 mEq ER Tab PO ONE (15:00)
[2018-04-06] MEDS ORDERED: Gadodiamide 287 MG/ML VIAL (15ML) IV ONE (18:02)
[2018-04-07 05:49] LABS: CALCIUM 9.4 mg/dL (8.4-10.2)
--- NOTE | 2018-04-07 08:18 | MRI ---
Date of service: 04/06/2018 PROCEDURE: MRI BRAIN WITH AND WITHOUT CONTRAST HISTORY: Headache COMPARISON: Brain MRI without contrast 01/15/2018. TECHNIQUE: Multiplanar, multisequence MR images of the brain were obtained with and without intravenous contrast (Omniscan 20 cc) enhancement. FINDINGS: HEMORRHAGE: None DWI: There is a thin small area of restricted diffusion at the right temporoparietal region compatible with a small infarct. No lobar brain infarction appreciated on acute or chronic basis. BRAIN PARENCHYMA: Multiple chronic lacune is are seen the bilateral thalami and basal ganglia once again which are reiterated and unchanged. There is no mass effect. Multiple small punctate areas of hemosiderin deposition are identified, particularly in the gradient echo axial series at the right occipital lobe, right cerebral peduncle, left cristine and bilateral upper cerebellar hemispheres likely reflecting small cavernomata. Given excessive white-matter signal changes in the periventricular and centrum semiovale regions amyloid angiopathy is a consideration but unlikely in a 57-year-old. The distribution of hemosiderin is also not peripheral specifically. Clinically correlate further. Chronic microangiopathy pattern appears stable Midline brain and appears unremarkable once again and there is no suspicious extra-axial fluid collection identified. ENHANCEMENT: No abnormal intracranial enhancement. VENTRICLES: Unremarkable. No hydrocephalus. CRANIUM: Unremarkable. ORBITS: Grossly unremarkable. PARANASAL SINUSES/MASTOIDS: Clear VASCULAR SYSTEM: Skull base flow voids intact. OTHER FINDINGS: None . IMPRESSION: 1. Small acute subacute infarct right temporoparietal region. No acute or subacute lobar brain infarction identified. 2. Multifocal chronic lacune or infarcts are identified as discussed above without lobar infarction. Chronic microangiopathy pattern is stable as well. 3. Multiple cavernomas again appreciated.
[2018-04-07] MEDS: Pantoprazole 40 mg EC Tab PO SCH (09:49)
[2018-04-07] MEDS ORDERED: Aspirin 325 mg EC Tablets PO SCH (10:00)
--- NOTE | 2018-04-07 10:19 | CARD ---
APPROVED REPORT Date of service: 04/07/2018 <Conclusion> Marked sinus bradycardia Possible Left atrial enlargement Left ventricular hypertrophy Cannot rule out Septal infarct, age undetermined Abnormal ECG
--- NOTE | 2018-04-07 18:39 | CP.PCM.PN ---
Subjective - Date & Time of Evaluation Date of Evaluation: 04/07/18 Time of Evaluation: 18:20 - Subjective Subjective: patient denies chest pain Objective - Vital Signs/Intake and Output Vital Signs (last 24 hours): Temp Pulse Resp BP Pulse Ox 97.3 F L 54 L 20 168/102 H 98 04/07/18 16:01 04/07/18 16:07 04/07/18 16:01 04/07/18 16:07 04/07/18 16:07 - Medications Medications: Current Medications Acetaminophen (Tylenol 325mg Tab) 650 mg PO Q4 PRN PRN Reason: Headache Last Admin: 04/03/18 22:25 Dose: 650 mg Amlodipine Besylate (Norvasc) 10 mg PO DAILY [facility] Last Admin: 04/07/18 08:44 Dose: 10 mg Aspirin (Ecotrin) 325 mg PO DAILY [facility] Last Admin: 04/07/18 17:48 Dose: 325 mg Hydralazine HCl (Apresoline) 10 mg IV Q6 PRN PRN Reason: Systolic Blood Pressure Last Admin: 04/05/18 12:47 Dose: 10 mg Hydrochlorothiazide (Microzide) 12.5 mg PO DAILY [facility] Last Admin: 04/07/18 08:44 Dose: 12.5 mg Hydromorphone HCl (Dilaudid) 1 mg IVP Q4 PRN PRN Reason: Pain, moderate (4-7) Last Admin: 04/04/18 10:13 Dose: 1 mg Lactulose (Enulose) 10 gm PO BID PRN PRN Reason: Constipation Losartan Potassium (Cozaar) 100 mg PO DAILY [facility] Last Admin: 04/07/18 08:43 Dose: 100 mg Ondansetron HCl (Zofran Inj) 4 mg IVP Q6 PRN PRN Reason: Nausea/Vomiting Last Admin: 04/03/18 22:43 Dose: 4 mg Pantoprazole Sodium (Protonix Ec Tab) 40 mg PO DAILY [facility] Last Admin: 04/07/18 09:49 Dose: 40 mg - Labs Labs: 04/06/18 04:20 04/07/18 05:00 - Constitutional Appears: Non-toxic - Head Exam Head Exam: NORMAL INSPECTION - Eye Exam Eye Exam: Normal appearance - ENT Exam ENT Exam: Mucous Membranes Moist - Neck Exam Neck Exam: Full ROM - Respiratory Exam Respiratory Exam: Decreased Breath Sounds - Cardiovascular Exam Cardiovascular Exam: REGULAR RHYTHM - GI/Abdominal Exam GI & Abdominal Exam: Normal Bowel Sounds - Rectal Exam Rectal Exam: Deferred - Extremities Exam Extremities Exam: Normal Inspection - Back Exam Back Exam: NORMAL INSPECTION - Neurological Exam Neurological Exam: Alert - Psychiatric Exam Psychiatric exam: Normal Affect - Skin Skin Exam: Normal Color Assessment and Plan (1) Bradycardia Assessment & Plan: asymptomatic. no indication for PPM Status: Acute (2) Hypertension Assessment & Plan: consider increase HCTZ to 25 mg daily Status: Acute
--- NOTE | 2018-04-07 18:43 | CP.PCM.CON ---
History of Present Illness - History of Present Illness History of Present Illness: Neurology Consultation Note: Mr. Waters is a 57-year-old man with a past medical history of HTN CAD, previous CVA admitted for intractable vomiting and epigastric pain. He was extremely hypertensive in the ED. Over the past several days he has been having worsening ambulation and gait instability. An MRI of the brain was done and showed a small area of restricted diffusion consistent with subacute right temporal-parietal lobe infarct as well as multiple prior chronic lacunar strokes. Neurology was consulted to assist with the management and care. Review of Systems - Review of Systems All systems: reviewed and no additional remarkable complaints except Past Patient History - Infectious Disease Hx of Infectious Diseases: None - Past Medical History & Family History Past Medical History?: Yes - Past Social History Smoking Status: Never Smoked - CARDIAC Hx Cardiac Disorders: Yes - PULMONARY Hx Respiratory Disorders: No - NEUROLOGICAL Hx Neurological Disorder: Yes - HEENT Hx HEENT Problems: No - RENAL Hx Chronic Kidney Disease: No - HEMATOLOGICAL/ONCOLOGICAL Hx Blood Disorders: No - INTEGUMENTARY Hx Dermatological Problems: No - MUSCULOSKELETAL/RHEUMATOLOGICAL Hx Musculoskeletal Disorders: No Hx Falls: No - GASTROINTESTINAL Hx Gastrointestinal Disorders: No - GENITOURINARY/GYNECOLOGICAL Hx Genitourinary Disorders: No - PSYCHIATRIC Hx Psychophysiologic Disorder: No Hx Substance Use: No - SURGICAL HISTORY Hx Surgeries: No - ANESTHESIA Hx Anesthesia: No Meds Home Medications: Home Medication List Medication Instructions Recorded Confirmed Type Aspirin [Adult Aspirin] 81 mg PO DAILY #30 tablet. 04/06/18 Rx Losartan [Cozaar] 100 mg PO DAILY #30 tab 04/06/18 Rx amLODIPine [Norvasc] 10 mg PO DAILY #30 tab 04/06/18 Rx hydroCHLOROthiazide [Microzide] 12.5 mg PO DAILY #30 cap 04/06/18 Rx Allergies/Adverse Reactions: Allergies Allergy/AdvReac Type Severity Reaction Status Date / Time No Known Allergies Allergy Verified 12/23/15 17:02 - Medications Medications: Current Medications Acetaminophen (Tylenol 325mg Tab) 650 mg PO Q4 PRN PRN Reason: Headache Last Admin: 04/03/18 22:25 Dose: 650 mg Amlodipine Besylate (Norvasc) 10 mg PO DAILY [facility] Last Admin: 04/07/18 08:44 Dose: 10 mg Aspirin (Ecotrin) 325 mg PO DAILY [facility] Last Admin: 04/07/18 17:48 Dose: 325 mg Hydralazine HCl (Apresoline) 10 mg IV Q6 PRN PRN Reason: Systolic Blood Pressure Last Admin: 04/05/18 12:47 Dose: 10 mg Hydrochlorothiazide (Microzide) 12.5 mg PO DAILY [facility] Last Admin: 04/07/18 08:44 Dose: 12.5 mg Hydromorphone HCl (Dilaudid) 1 mg IVP Q4 PRN PRN Reason: Pain, moderate (4-7) Last Admin: 04/04/18 10:13 Dose: 1 mg Lactulose (Enulose) 10 gm PO BID PRN PRN Reason: Constipation Losartan Potassium (Cozaar) 100 mg PO DAILY [facility] Last Admin: 04/07/18 08:43 Dose: 100 mg Ondansetron HCl (Zofran Inj) 4 mg IVP Q6 PRN PRN Reason: Nausea/Vomiting Last Admin: 04/03/18 22:43 Dose: 4 mg Pantoprazole Sodium (Protonix Ec Tab) 40 mg PO DAILY [facility] Last Admin: 04/07/18 09:49 Dose: 40 mg Physical Exam - Neurological Exam Neurological exam: Abnormal Gait, CN II-XII Intact, Oriented x3 Additional comments: NIHSS = 2 - Expanded Neurological Exam Expanded Patient oriented to: person, place, time Speech: Slurred Speech Cranial nerves: Facial Sensation: Normal Ataxia: No Cerebellar Function: Finger to Nose: Abnormal Left Upper motor neuron: Babinski Sign: Abnormal Left Sensory exam: Lower Extremity 2 Point Discrimination: Normal, Lower Extremity Light Touch: Normal, Lower Extremity Pin Prick: Normal, Lower Extremity Temperature: Normal, Upper Extremity 2 Point Discrimination: Normal, Upper Extremity Light Touch: Normal, Upper Extremity Pin Prick: Normal, Upper Extremity Temperature: Normal Neuro motor strength exam: Left Upper Extremity: 5, Right Upper Extremity: 5, Left Lower Extremity: 5, Right Lower Extremity: 5 DTR: Bicep Left: 3+, Bicep Right: 3+, Patellar Left: 3+, Patellar Right: 3+ Results - Vital Signs Recent Vital Signs: Last Vital Signs Temp 97.3 F L 04/07/18 16:01 Pulse 54 L 04/07/18 16:07 Resp 20 04/07/18 16:01 BP 168/102 H 04/07/18 16:07 Pulse Ox 98 04/07/18 16:07 - Labs Result Diagrams: 04/06/18 04:20 04/07/18 05:00 Labs: Laboratory Results - last 24 hr 04/07/18 05:00 Sodium 139 Potassium 4.1 Chloride 103 Carbon Dioxide 28 Anion Gap 12 BUN 30 H Creatinine 1.5 Est GFR ( Amer) 59 Est GFR (Non-Af Amer) 49 Random Glucose 94 Calcium 9.4 Assessment & Plan (1) Ischemic stroke Assessment and Plan: The patient has multiple risk factors for stroke, but he is young and the location of the newest stroke is possibly embolic. I recommend the followin. Telemetry 2. MRA brain and neck without contrast 3. Aspirin 81 mg daily 4. PT/OT eval and treatment 5. Lipitor 40 to maintain LDL< 70 6. Echocardiogram with bubble study 7. Consider loop recorder insertion of echo and MRA are normal 8. Normalize BP 9. Case management consult Thank you. Status: Acute Priority: High
--- NOTE | 2018-04-08 09:07 | PCM.STROKE ---
Interval History Critical Care Time Spent (in minutes): 15 Stroke Date: 04/07/18 - Treatment DVT Prophylaxis: Sequential compression device in place bilaterally Antiplatelet: Acetylsalicylic acid (ASA) (81 mg PO daily) Statin: Atrovastatin (40 mg PO daily) - Education Written Stroke Education provided regarding: personal risk factors (dyslipidemia ), stroke warning sign/symptoms, how to activate emergency medical services, need to follow up after discharge (to follow up CVA/ ischemic stroke) NIHSS Stroke Scale - Date/Time Evaluation Performed Date Performed: 04/07/18 Time Performed: 16:40 - How Severe is the Stroke Level of Consciousness: 0=Alert LOC to Questions: 0=Both comments correct LOC to commands: 0=Obeys both correctly Best Gaze: 0=Normal Visual: 0=No visual loss Facial: 0=Normal Motor Arm - Left: 0=No drift Motor Arm - Right: 0=No drift Motor Leg - Left: 0=No drift (but unsteady gait) Motor Leg - Right: 0=No drift Limb Ataxia: 0=Absent Sensory: 0=Normal Best Language: 0=No aphasia Dysarthia: 0=Normal articulation Extinction & Inattention (Neglect): 0=Normal, no object Score: 0 Exam - Vital Sign Vital Signs: Temp Pulse Resp BP Pulse Ox 97.7 F 57 L 18 145/86 100 04/08/18 08:18 04/08/18 08:18 04/08/18 08:18 04/08/18 08:18 04/08/18 08:18 Constitutional: No distress Right Pupil: Reactive Right Pupil Size (in mm): 2 Left Pupil: Reactive Left Pupil Size (in mm): 2 Cardiovascular: Other (bradycardia) Mental Status: Normal: Orientation, Memory, Attention, Language, Fund of Knowledge, Other Cranial Nerve: Normal: Visual [place], Extraocular movement intact, Facial Sensation, Facial Strength, Hearing, Palate/Tongue Movement, Shoulder Strength Neuro motor strength exam: Left Upper Extremity: 5, Right Upper Extremity: 5, Left Lower Extremity: 5, Right Lower Extremity: 5 Sensation: Intact to pin DTR: Achilles Tendon Left: 3+, Achilles Tendon Right: 3+, Bicep Left: 3+, Bicep Right: 3+, Brachioradialis Left: 3+, Brachioradialis Right: 3+, Patellar Left: 3 +, Patellar Right: 3+, Tricep Left: 3+, Tricep Right: 3+ Coordination: Finger/nose Gait: Other (unsteady gait) - Data reviewed Laboratory results: 04/06/18 04:20 04/07/18 05:00 Triglycerides 97 mg/DL (0-149) 04/05/18 07:01 Cholesterol 201 mg/dL (0-199) H 04/05/18 07:01 LDL Cholesterol Direct 94 mg/dL (0-129) 04/05/18 07:01 HDL Cholesterol 70 MG/DL (30-70) 04/05/18 07:01 Hemoglobin A1c 5.2 % (4.2-6.5) 04/05/18 07:01 Assessment and Plan (1) Ischemic stroke Assessment & Plan: Case discussed with Dr. Rapp, continue all current medical, physical therapies. Pending MRA of the head and neck. Recommend echocardiogram, lipitor 40 mg PO deaily to keep LDL< 70, aspirin 81 mg PO daily, blood pressure control , hydration, OT and ST eval and treat. Status: Acute
[2018-04-08] MEDS: Pantoprazole 40 mg EC Tab PO SCH (09:48)
--- NOTE | 2018-04-08 11:52 | MRI ---
Date of service: 04/08/2018 PROCEDURE: Magnetic Resonance Angiography Brain HISTORY: stroke COMPARISON: MRI brain without contrast from 04/06/2018. TECHNIQUE: 3D time of flight MR angiography of the intracranial arteries was performed. Rotating maximum intensity projection images were generated. FINDINGS: INTERNAL CAROTID ARTERIES: Normal flow related signal. The skull base, petrous, cavernous and supraclinoid segments are bilaterally widely patient. ANTERIOR CEREBRAL ARTERIES: Normal flow related signal. A1 and A2 segments are widely patent. Smaller distal branches unremarkable, as visualized. MIDDLE CEREBRAL ARTERIES: Normal flow related signal. M1 and M2 segments are widely patent. Perisylvian branches grossly symmetric. POSTERIOR CIRCULATION: Basilar Artery: Normal flow related signal. Distal Vertebral Arteries: Normal flow related signal. Posterior Cerebral Arteries: Normal flow related signal. Posterior Inferior Cerebellar Arteries: . ANEURYSM/ VASCULAR MALFORMATIONS: None. OTHER FINDINGS: There are ill-defined areas of increased attenuation in the right caudate head, anterior limb of the internal capsule and anterior basal ganglia. IMPRESSION: Normal MR angiography of the brain. Findings concerning for hemorrhagic transformation of known right corpus striae term infarction. CT scan of the head is recommended for further evaluation. Important findings were discussed with Dr. Carlos Rapp on 04/08/2018 at 11:30 a.m.
--- NOTE | 2018-04-08 11:57 | MRI ---
Date of service: 04/08/2018 PROCEDURE: MR Angiography of the neck without contrast HISTORY: stroke COMPARISON: None available. TECHNIQUE: 3D [id number] angiography of the neck was performed. Rotating maximum intensity projection images of the cervical carotid and vertebral arteries were generated. The origins of the common carotid arteries were not visualized, which is a limitation inherent to the non-contrast time of flight technique. FINDINGS: RIGHT CAROTID ARTERIES: Common Carotid Artery: Normal. Carotid Bifurcation: Normal. Internal Carotid Artery:Normal. External Carotid Artery (proximal branches): Normal. LEFT CAROTID ARTERIES: Common Carotid Artery: Normal. Carotid Bifurcation: Normal. Internal Carotid Artery:Normal. External Carotid Artery (proximal branches): Normal. VERTEBRAL ARTERIES: Right Vertebral Artery: Normal. The right vertebral artery is dominant an anatomic variant. Left Vertebral Artery: Normal. OTHER FINDINGS: None. IMPRESSION: Normal MR Angiography of the neck.
--- NOTE | 2018-04-08 12:27 | CT ---
Date of service: 04/08/2018 PROCEDURE: CT HEAD WITHOUT CONTRAST. HISTORY: hemorrhagic transformation of brain infarct COMPARISON: MRI brain dated 03/29/2018; CT head dated 04/04/2018 TECHNIQUE: Axial computed tomography images were obtained through the head/brain without intravenous contrast. Radiation dose: Total exam DLP = 901.5 mGy-cm. This CT exam was performed using one or more of the following dose reduction techniques: Automated exposure control, adjustment of the mA and/or kV according to patient size, and/or use of iterative reconstruction technique. FINDINGS: HEMORRHAGE: No intracranial hemorrhage. BRAIN: No mass effect or edema. Atrophy. Chronic microvascular ischemic changes. Multiple bilateral lacunar infarctions. Known acute/ subacute temporoparietal region focal infarction not well appreciated current examination. VENTRICLES: Unremarkable. No hydrocephalus. CALVARIUM: Unremarkable. PARANASAL SINUSES: Left maxillary sinus mucosal thickening. MASTOID AIR CELLS: Unremarkable as visualized. No inflammatory changes. OTHER FINDINGS: None. IMPRESSION: No acute intracranial pathology or hemorrhage. Chronic white matter disease. Known right temporoparietal region acute/ subacute focal infarction not well appreciated on the current examination, likely due to differences in modality.
--- NOTE | 2018-04-08 16:28 | CARD ---
APPROVED REPORT Date of service: 04/08/2018 EXAM: Two-dimensional and M-mode echocardiogram with Doppler, color Doppler with bubble study. Other Information Quality : GoodRhythm : NSR INDICATION CVA/TIA PFO Echo Enhancing Agent Indication: Rule Out Septal Defect Agent/Amount Used: Agitated Saline 2D DIMENSIONS LVDd4.47 (3.9-5.9cm)LVOT Diameter2.44 (1.8-2.4cm) PWd1.31 (0.7-1.1cm)LVDs2.31 (2.5-4.0cm) FS (%) 48.3 %PWs2.22 (0.8-1.2cm) M-Mode DIMENSIONS Left Atrium (MM)4.65 (2.5-4.0cm)IVSd1.47 (0.7-1.1cm) Aortic Root3.21 (2.2-3.7cm)LVDd4.91 (4.0-5.6cm) Aortic Cusp Exc.2.09 (1.5-2.0cm)PWd1.62 (0.7-1.1cm) IVSs2.24 cmFS (%) 49 % LVDs2.50 (2.0-3.8cm)PWs2.41 cm Aortic Valve AoV Peak Wvdebnwp298.8cm/sAoV VTI34.6cmAO Peak GR.14mmHg LVOT Peak Yhfkochf388.5cm/sLVOT VTI23.55cmAO Mean GR.7mmHg Mitral Valve MV E Mcgobihx61.3cm/sMV DECEL [id number] A Umtjilfr82.8cm/s MV ZBJ87ejD/A ratio0.8MVA (PHT)2.65cm2 TDI Lateral E' Peak V13.28cm/sMedial E' Peak V5.13cm/sE/Lateral E'4.3 E/Medial E'11.2 Pulmonary Valve PV Peak Fpqgppvb588.5cm/s LEFT VENTRICLE The left ventricle is normal size. There is moderate concentric left ventricular hypertrophy. The left ventricular systolic function is hyperdynamic The estimated ejection fraction is 75% No regional wall motion abnormalities noted.. Transmitral Doppler flow pattern is Grade I-abnormal relaxation pattern. No left ventricle thrombus noted on this study. There is no ventricular septal defect visualized. There is no mass noted in the left ventricle. RIGHT VENTRICLE The right ventricle is normal size. There is normal right ventricular wall thickness. The right ventricular systolic function is normal. ATRIA The left atrium size is moderately dilated The right atrium size is normal. The interatrial septum is intact with no evidence for an atrial septal defect. No evidence of patent foramen ovale via bubble study AORTIC VALVE The aortic valve is normal in structure. No aortic regurgitation is present. There is no aortic valvular stenosis. MITRAL VALVE The mitral valve is normal in structure. There is no mitral valve stenosis. There is trivial mitral valve regurgitation noted. TRICUSPID VALVE The tricuspid valve is normal in structure. There is no tricuspid valve regurgitation noted. PULMONIC VALVE The pulmonary valve is normal in structure. There is no pulmonic valvular regurgitation. GREAT VESSELS The aortic root is normal in size. The ascending aorta is normal in size. The pulmonary artery is normal. The IVC is normal in size and collapses >50% with inspiration. PERICARDIAL EFFUSION There is no pericardial effusion. <Conclusion> Dilated left atrium Moderate LVH The left ventricular systolic function is hyperdynamic The estimated ejection fraction is 75% No evidence of PFO
--- NOTE | 2018-04-09 08:40 | CP.PCM.PN ---
Subjective - Date & Time of Evaluation Date of Evaluation: 04/09/18 Time of Evaluation: 08:38 - Subjective Subjective: Mr. Waters was seen and examined at the bedside. He remains alert, oriented, but unable to maintain eye contact during the conversation. He denies any headache, dizziness, lightheadedness, but complains of being unsteady to his feet during ambulation. He is able to move all extremities with symmetrical strength. He is able to follow all commands. Repeat CTH showed no acute intracranial pathology or hemorrhage. Chronic white matter disease. Known right temporoparietal region acute/ subacute focal infarction not well appreciated on the current examination, likely due to differences in modality. There was no untoward events overnight. Objective - Vital Signs/Intake and Output Vital Signs (last 24 hours): Temp Pulse Resp BP Pulse Ox 97.8 F 47 L 18 157/70 H 100 04/09/18 07:57 04/09/18 07:57 04/09/18 07:57 04/09/18 07:57 04/09/18 07:57 - Medications Medications: Current Medications Acetaminophen (Tylenol 325mg Tab) 650 mg PO Q4 PRN PRN Reason: Headache Last Admin: 04/03/18 22:25 Dose: 650 mg Amlodipine Besylate (Norvasc) 10 mg PO DAILY [facility] Last Admin: 04/08/18 09:47 Dose: 10 mg Aspirin (Aspirin Chewable) 81 mg PO DAILY [facility] Last Admin: 04/08/18 09:49 Dose: 81 mg Atorvastatin Calcium (Lipitor) 40 mg PO DAILY@2200 [facility] Last Admin: 04/08/18 21:15 Dose: 40 mg Hydralazine HCl (Apresoline) 25 mg PO TID [facility] Last Admin: 04/08/18 18:01 Dose: 25 mg Hydromorphone HCl (Dilaudid) 1 mg IVP Q4 PRN PRN Reason: Pain, moderate (4-7) Last Admin: 04/04/18 10:13 Dose: 1 mg Lactulose (Enulose) 10 gm PO BID PRN PRN Reason: Constipation Losartan Potassium (Cozaar) 100 mg PO DAILY [facility] Last Admin: 04/08/18 09:46 Dose: 100 mg Ondansetron HCl (Zofran Inj) 4 mg IVP Q6 PRN PRN Reason: Nausea/Vomiting Last Admin: 04/03/18 22:43 Dose: 4 mg Pantoprazole Sodium (Protonix Ec Tab) 40 mg PO DAILY [facility] Last Admin: 04/08/18 09:48 Dose: 40 mg - Labs Labs: 04/06/18 04:20 04/07/18 05:00 - Constitutional Appears: No Acute Distress - Head Exam Head Exam: NORMAL INSPECTION - Eye Exam Pupil Exam: PERRL - Neurological Exam Neurological Exam: Alert, Awake, Oriented x3 Neuro motor strength exam: Left Upper Extremity: 5, Right Upper Extremity: 5, Left Lower Extremity: 5, Right Lower Extremity: 5 Additional comments: neurological unchanged from previous examination. Assessment and Plan (1) Ischemic stroke Assessment & Plan: Case discussed with Dr. Rapp, continue all current medical, physical, and occupational therapies. Recommend blood pressure control, follow up to primary, cardiology and neurology upon discharge, hydration, keep head of bed elevated at least 3o degrees. Status: Acute
[2018-04-09] MEDS: Pantoprazole 40 mg EC Tab PO SCH (08:59)
--- NOTE | 2018-04-09 15:09 | CP.PCM.PCO ---
Assessment/Plan - Assessment and Plan (Free Text) Assessment: Patient seen and examined All test results reviewed with MD, Pt ambulating >100 feet independently with Physical therapy. Did 3 flights of stairs with minimal assistance. Cleared by Neurology for dc on antihypertensives, aspirin lipitor. Will dc to home with follow up with PMD in 1 week Pt reinforced to adhere to medication regimen. rx sent to pharmacy. Family aware, rx for walker, cane and shower chair given to CM Pt for home physical therapy eval. all discussed with dr del rio.
[2018-04-09 16:02] VITALS: BP 132/82; PULSE 54; RESP 20; TEMP 97.9; O2SAT 98
--- NOTE | 2018-04-09 16:29 | CP.PCM.DIS ---
Provider - Provider Date of Admission: 04/04/18 16:20 Attending physician: Mayank Holly MD Consults: Cardiology: Dr Nelson Neurology: Dr Rapp GI: Dr Bentley Time Spent in preparation of Discharge (in minutes): 25 Diagnosis - Discharge Diagnosis (1) Gastritis Status: Acute (2) TIA (transient ischemic attack) Status: Acute Hospital Course - Lab Results Lab Results: Most Recent Lab Values WBC 8.6 K/uL (4.8-10.8) 04/06/18 04:20 RBC 5.11 Mil/uL (4.40-5.90) 04/06/18 04:20 Hgb 14.4 g/dL (12.0-18.0) 04/06/18 04:20 Hct 44.4 % (35.0-51.0) 04/06/18 04:20 MCV 86.9 fl (80.0-94.0) 04/06/18 04:20 MCH 28.1 pg (27.0-31.0) 04/06/18 04:20 MCHC 32.3 g/dL (33.0-37.0) L 04/06/18 04:20 RDW 15.4 % (11.5-14.5) H 04/06/18 04:20 Plt Count 279 K/uL (130-400) 04/06/18 04:20 MPV 9.1 fl (7.2-11.7) 04/06/18 04:20 Neut % (Auto) 62.3 % (50.0-75.0) 04/06/18 04:20 Lymph % (Auto) 26.3 % (20.0-40.0) 04/06/18 04:20 [place] % (Auto) 8.7 % (0.0-10.0) 04/06/18 04:20 Eos % (Auto) 1.9 % (0.0-4.0) 04/06/18 04:20 Baso % (Auto) 0.8 % (0.0-2.0) 04/06/18 04:20 Neut # (Auto) 5.3 K/uL (1.8-7.0) 04/06/18 04:20 Lymph # (Auto) 2.3 K/uL (1.0-4.3) 04/06/18 04:20 [place] # (Auto) 0.7 K/uL (0.0-0.8) 04/06/18 04:20 Eos # (Auto) 0.2 K/uL (0.0-0.7) 04/06/18 04:20 Baso # (Auto) 0.1 K/uL (0.0-0.2) 04/06/18 04:20 Sodium 139 mmol/l (132-148) 04/07/18 05:00 Potassium 4.1 MMOL/L (3.6-5.0) 04/07/18 05:00 Chloride 103 mmol/L (98-107) 04/07/18 05:00 Carbon Dioxide 28 mmol/L (22-30) 04/07/18 05:00 Anion Gap 12 (10-20) 04/07/18 05:00 BUN 30 mg/dl (9-20) H 04/07/18 05:00 Creatinine 1.5 mg/dl (0.8-1.5) 04/07/18 05:00 Est GFR ( Amer) 59 04/07/18 05:00 Est GFR (Non-Af Amer) 49 04/07/18 05:00 POC Glucose (mg/dL) 121 mg/dL (65-110) H 04/03/18 08:52 Random Glucose 94 mg/dL (75-110) 04/07/18 05:00 Hemoglobin A1c 5.2 % (4.2-6.5) 04/05/18 07:01 Calcium 9.4 mg/dL (8.4-10.2) 04/07/18 05:00 Total Bilirubin 0.7 mg/dl (0.2-1.3) 04/05/18 04:45 AST 28 U/L (17-59) 04/05/18 04:45 ALT 28 U/L (21-72) 04/05/18 04:45 Alkaline Phosphatase 60 U/L (38-126) 04/05/18 04:45 Troponin I 0.0160 ng/mL (0.00-0.120) 04/03/18 09:11 Total Protein 6.6 G/DL (6.3-8.2) 04/05/18 04:45 Albumin 3.6 g/dL (3.5-5.0) 04/05/18 04:45 Globulin 3.0 gm/dL (2.2-3.9) 04/05/18 04:45 Albumin/Globulin Ratio 1.2 (1.0-2.1) 04/05/18 04:45 Triglycerides 97 mg/DL (0-149) 04/05/18 07:01 Cholesterol 201 mg/dL (0-199) H 04/05/18 07:01 LDL Cholesterol Direct 94 mg/dL (0-129) 04/05/18 07:01 HDL Cholesterol 70 MG/DL (30-70) 04/05/18 07:01 Lipase 40 U/L (23-300) 04/03/18 19:40 TSH 3rd Generation 2.37 mIU/ML (0.46-4.68) 04/05/18 07:01 Urine Color Yellow (YELLOW) 04/03/18 22:05 Urine Clarity Clear (Clear) 04/03/18 22: Urine pH 6.0 (5.0-8.0) 04/03/18 22:05 Ur Specific [place] 1.015 (1.003-1.030) 04/03/18 22:05 Urine Protein Negative mg/dL (NEGATIVE) 04/03/18 22:05 Urine Glucose (UA) 150 mg/dL (Normal) 04/03/18 22:05 Urine Ketones Trace mg/dL (NEGATIVE) 04/03/18 22:05 Urine Blood Negative (NEGATIVE) 04/03/18 22:05 Urine Nitrate Negative (NEGATIVE) 04/03/18 22:05 Urine Bilirubin Negative (NEGATIVE) 04/03/18 22:05 Urine Urobilinogen 0.2-1.0 mg/dL (0.2-1.0) 04/03/18 22:05 Ur Leukocyte Esterase Neg Yesi/uL (Negative) 04/03/18 22:05 Urine RBC (Auto) 1 /hpf (0-3) 04/03/18 22:05 Urine Microscopic WBC < 1 /hpf (0-5) 04/03/18 22:05 Ur Squamous Epith Cells < 1 /hpf (0-5) 04/03/18 22:05 Urine Opiates Screen Negative (NEGATIVE) 04/03/18 22:05 Urine Methadone Screen Negative (NEGATIVE) 04/03/18 22:05 Ur Barbiturates Screen Negative (NEGATIVE) 04/03/18 22:05 Ur Phencyclidine Scrn Negative (NEGATIVE) 04/03/18 22:05 Ur Amphetamines Screen Negative (NEGATIVE) 04/03/18 22:05 U Benzodiazepines Scrn Negative (NEGATIVE) 04/03/18 22:05 U Oth Cocaine Metabols Negative (NEGATIVE) 04/03/18 22:05 U Cannabinoids Screen Negative (NEGATIVE) 04/03/18 22:05 Alcohol, Quantitative < 10 mg/dl (0-10) 04/03/18 18:52 - Hospital Course Hospital Course: 57 y/o M with a PMHx of HTN, CAD, previous CVA and non-comp;iance to medications admitted for intractable vomiting, epigastric pain, hypertensive urgency and lightheadedness. His GI symtpms resolved. An MRI of the brain was done and showed a small area of restricted diffusion consistent with subacute right temporal-parietal lobe infarct as well as multiple prior chronic lacunar strokes. MRA brain and neck without contrast were performed. MRA of brain was suspicious for brain hemorrhagic transformation. Head CT showed no hemorrhage after mentioned MRA findings. Pt was evaluated by physical therapy team, pt does not required skillful therapy/assistance. Pt stable, afebrile, tolerating PO, is dischraged home with intruction to f/u with PMD within 1 week and to closely take all his medications as prescribed. - Date & Time of H&P Date of H&P: 04/03/18 Time of H&P: 10:17 Discharge Exam - Head Exam Head Exam: NORMAL INSPECTION - Eye Exam Eye Exam: EOMI - ENT Exam ENT Exam: Mucous Membranes Dry - Neck Exam Neck exam: Full Rom - Respiratory Exam Respiratory Exam: NORMAL BREATHING PATTERN, UNREMARKABLE - Cardiovascular Exam Cardiovascular Exam: +S1, +S2 - GI/Abdominal Exam GI & Abdominal Exam: Soft, Unremarkable. absent: Tenderness - Neurological Exam Neurological exam: Alert Discharge Plan - Discharge Medications Prescriptions: amLODIPine [Norvasc] 10 mg PO DAILY #30 tab Aspirin [Aspirin Chewable] 81 mg PO DAILY #30 chew Atorvastatin [Lipitor] 40 mg PO DAILY@2200 #30 tab hydrALAZINE [Apresoline] 25 mg PO TID #90 tab Losartan [Cozaar] 100 mg PO DAILY #30 tab - Follow Up Plan Condition: FAIR Disposition: HOME/ ROUTINE Additional Instructions: Activity as tolerated . Heart healthy low fat, low cholesterol diet. Follow w/ Primary Doctor in one week to call for appointment. Referrals: Jona Bentley MD [Medical Doctor] - Carlos Rapp MD [Medical Doctor] - Clive Nelson MD [Staff Provider] -
--- NOTE | 2018-04-13 14:10 | PQF ---
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 Please clarify the diagnosis/diagnoses cva vs tia. Please also document if the condition is: -- Confirmed and current -- Confirmed, treated and resolved -- Ruled out -- Other, please specify The patient's Clinical Indicators include: CVA VS TIA Query created by: Jessica Kruse on 04/11/2018 3:52 PM Electronically signed by: Mayank Holly MD 04/13/2018 2:07 PM
== END 2018-04-09 17:00 | disposition home or self-care (01) | DRG 14 ==
LOC: H.ER 08:36 → H.ERHOLD 09:54 → H.TEL 11:17 → OBSVTOIN 04-04 16:20 → UNDODISIN 04-07 16:30
PROVIDERS: ADMIT Family Medicine; ATTEND Family Medicine
DX: I63.9 Cerebral infarction, unspecified (principal); E78.00 Pure hypercholesterolemia, unspecified; E78.5 Hyperlipidemia, unspecified; I10 Essential (primary) hypertension; Z91.14 Patient's other noncompliance with medication regimen; I25.10 Atherosclerotic heart disease of native coronary artery without angina pectoris; K29.70 Gastritis, unspecified, without bleeding; Z86.73 Personal history of transient ischemic attack (TIA), and cerebral infarction without residual deficits; Z72.0 Tobacco use; R00.1 Bradycardia, unspecified; R29.700 NIHSS score 0; R90.82 White matter disease, unspecified; T62.91XA Toxic effect of unspecified noxious substance eaten as food, accidental (unintentional), initial encounter